=== PATIENT | female | born 1950 | race Caucasian/White ===

== ENCOUNTER 2016-07-13 09:14 | Inpatient (IN) | payer OTHER ==
[~2016-07-13] VITALS: Ht 307.3 cm; Wt 56.3 kg
[2016-07-13] MEDS ORDERED: SOD CHLORIDE 0.9% 1,000 ML IV STA (09:57)
[2016-07-13] MEDS ORDERED: ONDANSETRON 4 MG INJ IV STA (09:57)
[2016-07-13] MEDS ORDERED: LORAZEPAM 2 MG INJ IV ONE (10:00)
[2016-07-13 10:32] LABS: ADD SCAN DIFF NO
[2016-07-13 10:36] LABS: BASOPHILS % 0.2 % (0.0-2.0); HEMATOCRIT 47.7 % (37.0-47.0); HEMOGLOBIN 15.5 g/dl (12.0-16.0); LYMPHOCYTES # 0.7 10^3/ul (0.8-2.9); MEAN CORPUSCULAR HEMOGLOBIN 28.1 pg (29.0-33.0); MEAN CORPUSCULAR HGB CONC 32.5 g/dl (32.0-37.0); MEAN CORPUSCULAR VOLUME 86.6 fl (82.0-101.0); MONOCYTE # 0.4 10^3/ul (0.3-0.9); MONOCYTES % 3.5 % (0.0-11.0); NEUTROPHIL # 8.9 10^3/ul (1.6-7.5); PLATELET COUNT 344 10^3/UL (140-415); RED BLOOD COUNT 5.51 10^6/ul (4.20-5.40); RED CELL DISTRIBUTION WIDTH 13.2 % (11.5-14.5)
[2016-07-13 10:47] LABS: ALBUMIN 5.3 g/dl (3.3-4.9); POTASSIUM 3.3 mmol/L (3.5-5.1)
[2016-07-13 10:49] LABS: CREATININE 0.93 mg/dl (0.44-1.00)
[2016-07-13 10:50] LABS: ALBUMIN/GLOBULIN RATIO 1.1; BILIRUBIN,INDIRECT 0.5 mg/dl (0-1.1); BILIRUBIN,TOTAL 0.5 mg/dl (0.2-1.3); CALCIUM 10.5 mg/dl (8.4-10.2); TOTAL PROTEIN 10.1 g/dl (6.1-8.1)
[2016-07-13] MEDS ORDERED: ASPI-664 PO (13:08)
[2016-07-13] MEDS ORDERED: LOVA10TA63 PO (13:09)
[2016-07-13] MEDS ORDERED: LISI20TA11 PO (13:09)
[2016-07-13] MEDS ORDERED: [UNRECOGNIZED DRUG - CODE] PO (13:11)
[2016-07-13] MEDS ORDERED: OMEG-135 PO (13:13)
[2016-07-13] MEDS: SOD CHLORIDE 0.9% 1,000 ML IV SCH ×2 (14:10→14:29)
--- NOTE | 2016-07-13 14:14 | ERA ---
ER Documentation Chief Complaint Date/Time DATE: 07/13/16 TIME: 14:12 Chief Complaint ap, bucknes s/p pre colonoscopy HPI This is 66-year-old female who is preparing for colonoscopy today at 10 AM. She had 2-3 doses of milk of magnesia last night she said she had 2 or 3 episodes of loose stools with 2 episodes of vomiting ileus and nonbloody. She says this morning she is weak and feels fatigued. She has no abdominal pain no back pain no dizziness headache no chest pain or shortness of breath. The patient is an alcoholic and her last drink was a few days ago according to the family. No evidence of acute withdrawal at this point. ROS All systems reviewed and are negative except as per history of present illness. Medications Home Meds Reported Medications [place]-3 Fatty Acids/Fish Oil (Fish Oil 1,000 mg Capsule) 1 Each Capsule, 1 EACH PO, CAP 07/13/16 Multivitamin/Iron/Folic Acid (MULTI COMPLETE-IRON TABLET) 1 Each Tablet, 1 EACH PO DAILY, TAB 07/13/16 Lovastatin* (Lovastatin*) 10 Mg Tablet, 10 MG PO HS, TAB 07/13/16 Lisinopril* (Lisinopril*) 20 Mg Tablet, 20 MG PO DAILY, #30 TAB 07/13/16 Aspirin (Low Dose Aspirin) 81 Mg Tablet.dr, 81 MG PO DAILY, #30 TAB 07/13/16 PMhx/Soc Medical and Surgical Hx: pt denies Surgical Hx Hx Cardiac Disorders: Yes (HTN) Hx Alcohol Use: No Hx Substance Use: No Hx Tobacco Use: No Smoking Status: Former smoker FmHx Family History: No coronary disease Physical Exam Vitals Vital Signs Date Time Temp Pulse Resp B/P Pulse Ox O2 Delivery O2 Flow Rate FiO2 07/13/16 12:53 90 18 144/95 98 Room Air 07/13/16 09:16 98.1 108 24 145/90 90 Physical Exam Const: Well-developed, well-nourished Head: Atraumatic, normocephalic Eyes: Normal Conjunctiva, PERRLA, EOMI, normal sclera, no nystagmus ENT: Normal External Ears, Nose and Mouth, moist mucus membranes. Neck: Full range of motion. No meningismus, no lymphadenopathy. Resp: Clear to auscultation bilaterally, no wheezing, rhonchi, rales Cardio: Regular rate and rhythm, no murmurs, S1 S2 present Abd: Soft, non tender x 4, non distended. Normal bowel sounds, no guarding or rebound, no pulsitile abdominal masses or bruits Skin: No petechiae or rashes, no ecchymosis , no maculopapular rash Back: No midline or flank tenderness Ext: No cyanosis, or edema, FROM x 4, normal inspection, neurovascularly intact x 4 Neur: Awake and alert, STR 5/5 x 4, sensation intact x 4, no focal findings, cerebellum intact Psych: [Patient is very anxious and hyperventilating Result Diagram: 07/13/16 1012 07/13/16 1012 Results 24 hrs Laboratory Tests Test 07/13/16 10:12 White Blood Count 10.010^3/ul Red Blood Count 5.5110^6/ul Hemoglobin 15.5g/dl Hematocrit 47.7% Mean Corpuscular Volume 86.6fl Mean Corpuscular Hemoglobin 28.1pg Mean Corpuscular Hemoglobin Concent 32.5g/dl Red Cell Distribution Width 13.2% Platelet Count 29522^3/UL Mean Platelet Volume 11.0fl Neutrophils % 89.0% Lymphocytes % 7.0% Monocytes % 3.5% Eosinophils % 0.0% Basophils % 0.2% Nucleated Red Blood Cells % 0.0/100WBC Neutrophils # 8.910^3/ul Lymphocytes # 0.710^3/ul Monocytes # 0.410^3/ul Eosinophils # 0.010^3/ul Basophils # 0.010^3/ul Nucleated Red Blood Cells # 0.010^3/ul Sodium Level 159mmol/L Potassium Level 3.3mmol/L Chloride Level 105mmol/L Carbon Dioxide Level 34mmol/L Anion Gap 23 Blood Urea Nitrogen 20mg/dl Creatinine 0.93mg/dl Glucose Level 154mg/dl Calcium Level 10.5mg/dl Total Bilirubin 0.5mg/dl Direct Bilirubin 0.00mg/dl Indirect Bilirubin 0.5mg/dl Aspartate Amino Transf (AST/SGOT) 35IU/L Alanine Aminotransferase (ALT/SGPT) 19IU/L Alkaline Phosphatase 109IU/L Total Protein 10.1g/dl Albumin 5.3g/dl Globulin 4.80g/dl Albumin/Globulin Ratio 1.10 Current Medications Medications (Trade) Dose Ordered Sig/Rossy Route PRN Reason Start Time Stop Time Status Last Admin Dose Admin Sodium Chloride (NS) 1,000 ml @ 1,000 mls/hr Q1H STAT IV 07/13/16 09:57 07/13/16 10:56 DC 07/13/16 10:08 Ondansetron HCl (Zofran Inj) 4 mg ONCE STAT IV 07/13/16 09:57 07/13/16 09:59 DC 07/13/16 10:08 Lorazepam (Ativan) 0.5 mg ONCE ONCE IV 07/13/16 10:00 07/13/16 10:01 DC 07/13/16 10:08 Procedures/MDM Patient was found to have elevated sodium of 159. Rest of labs are relatively unremarkable. I will admit her for general rehydration to lower her sodium. I did speak with Dr. Bard apodaca for admission Departure Diagnosis: Primary Impression: Hypernatremia Condition: Stable PATY GONZALEZ DO Jul 13, 2016 14:14
[2016-07-13] MEDS ORDERED: ACETAMINOPHEN 325 MG TAB PO PRN (14:30)
[2016-07-13] MEDS ORDERED: ONDANSETRON 4 MG INJ IV PRN ×2 (14:30→18:00)
[2016-07-13 14:56] VITALS: TEMP 97.7
[2016-07-13] MEDS ORDERED: hydrALAzine 20 MG INJ IV PRN (18:00)
[2016-07-13] MEDS ORDERED: morphine 2 MG INJ IV PRN (18:00)
--- NOTE | 2016-07-13 18:05 | HP ---
DATE OF ADMISSION: 07/13/2016 CHIEF COMPLAINT: Generalized weakness, nausea and vomiting and left upper abdominal pain. HISTORY OF PRESENT ILLNESS: The patient is a 66-year-old female who was preparing for colonoscopy. Patient took a couple of doses of milk of magnesia last night and had 3 episodes of loose stool wit h episodes of nonbilious, nonbloody emesis. The patient complains of generalized weakness and compl aints of left upper abdominal pain. On evaluation in the emergency room, patient did not have any l eukocytosis, patient's sodium was found to be elevated to 169 and potassium was 3.3. The patient d enies any chest pain, denies shortness of breath, denies fever, chills, denies bilateral lower extre mity edema. The patient will be admitted for further evaluation and management. PAST MEDICAL HISTORY: Hypertension, hyperlipidemia. PAST SURGICAL HISTORY: Patient denies having any surgeries in the past. FAMILY HISTORY: Negative for any coronary artery disease. SOCIAL HISTORY: Patient lives at home with the family, patient denies any tobacco use, denies any i llicit drug use, denies any alcohol use. ALLERGIES: NO KNOWN ALLERGIES. MEDICATIONS ON ADMISSION: 1. Aspirin. 2. Lisinopril. 3. Lovastatin. REVIEW OF SYSTEMS: A 12-point review of systems is negative unless was mentioned in the HPI. PHYSICAL ASSESSMENT GENERAL: Well-developed, well-nourished female currently is awake, alert. VITAL SIGNS: Temperature 97.7, pulse is 86, blood pressure is 153/98, respiratory rate 20, oxygen s aturation is 100% on room air. HEENT: Head is atraumatic, normocephalic. Pupils equal, round, reactive to light and accommodation . Oral mucosa is dry. NECK: Supple, no cervical lymphadenopathy, no thyromegaly. CHEST: Lungs clear bilaterally. There is no rhonchi, wheezes, or rales noted. CARDIOVASCULAR: Normal S1, S2. No murmurs, gallops, clicks, rubs noted. ABDOMEN: Round, soft, nondistended. Patient has left upper quadrant tenderness on palpation. Ther e is no guarding, no rebound tenderness. EXTREMITIES: There is no edema, clubbing, cyanosis. Pulses equal bilaterally 2+. SKIN: There is no rash, petechiae noted. NEUROLOGIC: Patient is awake, alert and oriented x4. No focal deficits noted. Motor strength 5/5 in all extremities. LABORATORY DATA: On admission, CBC: White blood cells 10.0, hemoglobin 15.5, hematocrit 47.7, plat elets 344. Chemistry: Sodium is 169, potassium 3.3, chloride 105, carbon dioxide 34, anion gap 23, BUN is 20, creatinine 0.93, glucose 154, calcium 10.5, AST 35, ALT is 19, alkaline phosphatase 109. ASSESSMENT AND PLAN: 1. Hypernatremia. 2. Hypokalemia. 3. Abdominal pain. 4. Hypertension. We will continue hydralazine p.r.n. for systolic blood pressure above 170. 5. Hyperlipidemia. We will ask Dr. Horta to see patient in nephrology consultation. Patient will be admitted for hydration and monitoring of electrolytes. Also, continue Zofran p.r.n. for nausea a nd morphine p.r.n. for pain. Further recommendations: Will start Lovenox for deep venous thrombosis prophylaxis and Protonix for peptic ulcer disease prophylaxis. Further recommendations based on clinical course. The patient a lso was preparing for colonoscopy; however, the patient does not know her gastroenterology doctor. Ulises cantu with primary doctor, ____. The patient continues to have abdominal pain and nausea and vomi ting. We will obtain gastroenterology consult. Further recommendations based on clinical course. Plan of care is discussed with Dr. Daniels. Dictated By: KRAIG BAÑUELOS SHEEP BONER for ZACHARY DANIELS MD, SR/NTS Conf#: [id number] DID#: [id number]
[2016-07-13 19:05] VITALS: BP 152/99; PULSE 85; RESP 13
[2016-07-13] MEDS: D5W + KCL 20 MEQ 1,000 ML IV SCH (22:08)
[2016-07-13] MEDS: ENOXAPARIN 30 MG/0.3 ML SYG SC SCH (22:08)
[2016-07-13] MEDS: PANTOPRAZOLE 40 MG INJ IV SCH (22:08)
[2016-07-13 22:57] VITALS: BP 164/84; PULSE 70; RESP 19
[2016-07-13 23:30] VITALS: PULSE 61; Ht 307.3 cm; Wt 56.3 kg
[2016-07-14] VITALS (12 sets, daily range): BP systolic 126–176; BP diastolic 75–102; PULSE 63–81; RESP 18–71
--- NOTE | 2016-07-14 00:45 | CONS ---
DATE OF ADMISSION: 07/13/2016 DATE OF CONSULTATION: 07/13/2016 REASON FOR CONSULTATION: Acute hypernatremia, hypokalemia. HISTORY OF PRESENT ILLNESS: This is a 66-year-old female who has a past medical history of hyperten min, hyperlipidemia who was preparing for colonoscopy. She took a couple of doses of Milk of Magne roberta last night and had 3 episodes of loose stools with episodes of nonbilious, nonbloody emesis. Sh e complains of generalized weakness and left upper abdominal pain. The patient came to the emergenc y room where she was noted to have hypernatremia with a sodium up to 169 and potassium was also 3.3. She denies any chest pain, shortness of breath, fever, chills, headache, dizziness, blurry vision, constipation, diarrhea, dysuria, increased urinary frequency. The patient already received 2 liter s of IV normal saline in the emergency room and she is getting admitted for further IV fluid hydrati on and workup of hyponatremia and hyperkalemia. REVIEW OF SYSTEMS: Positive for generalized weakness, diarrhea, vomiting. Other review of systems has been obtained and is negative except what is mentioned in the history of present illness. PAST MEDICAL HISTORY: Hypertension, hyperlipidemia. PAST SURGICAL HISTORY: Not available. FAMILY HISTORY: Negative for any coronary artery disease. SOCIAL HISTORY: The patient lives at home with her family. She denies any tobacco use. Denies any illicit drug use. Denies any alcohol use. ALLERGIES: NO KNOWN DRUG ALLERGIES. HOME MEDICATIONS: Include: 1. Aspirin. 2. Lisinopril. 3. Lovastatin. REVIEW OF SYSTEMS: Negative. PHYSICAL EXAMINATION: VITAL SIGNS: Temperature 97.7, heart rate 85, respirations 13, blood pressure 152/99, saturation is 100% on room air. GENERAL: Awake, alert, in no distress. HEENT: Normal. Oropharynx clear. NECK: Supple, no JVD, no lymphadenopathy. LUNGS: Clear to auscultation. No crackles, no wheezes. HEART: S1, S2, with regular rhythm, no murmur. ABDOMEN: Soft, nontender, nondistended. Bowel sounds are present. EXTREMITIES: No clubbing, cyanosis, or edema. NEUROLOGICAL: Nonfocal, intact. PSYCHIATRIC: Appropriate affect and mood. LABORATORY DATA/DIAGNOSTIC IMAGING: Sodium 159, potassium 3.3, chloride 105, bicarbonate 34, BUN 20 , creatinine 0.9, glucose 154, calcium 10.5, albumin 5.3, total protein 10.1. WBC , hemoglobin 15.5, platelet count 344. IMPRESSION: This is a 66-year-old female who has been getting admitted for diarrhea, nausea, vomiti ng and renal has been consulted for: 1. Acute hypernatremia. 2. Severe hypokalemia. 3. Prerenal azotemia. 4. Abdominal pain. 5. History of hypertension. 6. History of hyperlipidemia. PLAN: The patient is currently seen in the emergency room. She will be getting admitted to the tel emetry floor. Thank you, Dr. Little, for this consultation. I will start the patient on IV fluids with D5W with 20 mEq KCl to run at 80 mL hour. Continue the current medications and we will continue to monitor the patient's electrolytes. The pa garrett will be followed up along with the primary care physician, Dr. Little. Once again, thank you, Dr. Little, for this consultation. I will continue to follow this patient. Total time spent in this patient's evaluation in the emergency room, making assessment and plan, com municating and updating the patient's family at bedside, communicating with the nursing staff took m ore than 90 minutes and more than 50% of time spent in education. Dictated By: BERNICE DISLA MD, KP/KENYON Conf#: [id number] DID#: [id number]
[2016-07-14] MEDS ORDERED: ACETAMINOPHEN 325 MG TAB PO PRN (01:00)
[2016-07-14] MEDS: PANTOPRAZOLE 40 MG INJ IV SCH ×3 (05:51→18:50)
[2016-07-14] MEDS: D5W + KCL 20 MEQ 1,000 ML IV SCH ×2 (05:54→09:14)
[2016-07-14] MEDS ORDERED: ENOXAPARIN 30 MG/0.3 ML SYG SC SCH (09:00)
[2016-07-14] MEDS: ENOXAPARIN 30 MG/0.3 ML SYG SC SCH (09:19)
[2016-07-14 11:28] LABS: ADD SCAN DIFF NO
[2016-07-14 11:34] LABS: BASOPHILS % 0.3 % (0.0-2.0); EOSINOPHILS # 0.1 10^3/ul (0.0-0.5); EOSINOPHILS % 0.5 % (0.0-7.0); HEMATOCRIT 42.4 % (37.0-47.0); HEMOGLOBIN 13.2 g/dl (12.0-16.0); LYMPHOCYTES # 2.1 10^3/ul (0.8-2.9); LYMPHOCYTES % 22.1 % (15.0-51.0); MEAN CORPUSCULAR HGB CONC 31.1 g/dl (32.0-37.0); MEAN PLATELET VOLUME 10.4 fl (7.4-10.4); MONOCYTE # 0.9 10^3/ul (0.3-0.9); MONOCYTES % 9.2 % (0.0-11.0); NEUTROPHIL # 6.5 10^3/ul (1.6-7.5); NEUTROPHILS % 67.5 % (39.0-77.0); PLATELET COUNT 273 10^3/UL (140-415); RED BLOOD COUNT 4.71 10^6/ul (4.20-5.40); RED CELL DISTRIBUTION WIDTH 13.6 % (11.5-14.5); WHITE BLOOD COUNT 9.7 10^3/ul (4.8-10.8)
[2016-07-14 12:55] LABS: POTASSIUM 3.8 mmol/L (3.5-5.1)
[2016-07-14 12:57] LABS: CREATININE 0.86 mg/dl (0.44-1.00)
[2016-07-14 12:58] LABS: CALCIUM 9.2 mg/dl (8.4-10.2)
--- NOTE | 2016-07-14 19:01 | CONS ---
Date/Time of Note Date/Time of Note DATE: 07/14/16 TIME: 19:00 Assessment/Plan Assessment/Plan Additional Assessment/Plan 1. Acute hypernatremia. 2. Severe hypokalemia. 3. Prerenal azotemia. 4. Abdominal pain. 5. History of hypertension. 6. History of hyperlipidemia. PLAN: na improving, Continue current IVF will follow up Consultation Date/Type/Reason Admit Date/Time Jul 13, 2016 at 14:11 Initial Consult Date Type of Consultation: NEPHROLOGY 24 HR Interval Summary Free Text/Dictation na improved to 150, pt less symptomatic Exam/Review of Systems Vital Signs Vitals Vital Signs Date Time Temp Pulse Resp B/P Pulse Ox O2 Delivery O2 Flow Rate FiO2 07/14/16 16:17 72 07/14/16 16:07 98.6 18 126/75 99 07/14/16 12:02 Room Air Intake and Output 07/13/16 07/13/16 07/14/16 15:00 23:00 07:00 Intake Total 800 ml Balance 800 ml Exam GENERAL: Awake, alert, in no distress. HEENT: Normal. Oropharynx clear. NECK: Supple, no JVD, no lymphadenopathy. LUNGS: Clear to auscultation. No crackles, no wheezes. HEART: S1, S2, with regular rhythm, no murmur. ABDOMEN: Soft, nontender, nondistended. Bowel sounds are present. EXTREMITIES: No clubbing, cyanosis, or edema. NEUROLOGICAL: Nonfocal, intact. PSYCHIATRIC: Appropriate affect and mood. Results Result Diagram: 07/14/16 1113 07/14/16 1113 Results 24 hrs Laboratory Tests Test 07/14/16 11:13 White Blood Count 9.7 Red Blood Count 4.71 Hemoglobin 13.2 Hematocrit 42.4 Mean Corpuscular Volume 90.0 Mean Corpuscular Hemoglobin 28.0 L Mean Corpuscular Hemoglobin Concent 31.1 L Red Cell Distribution Width 13.6 Platelet Count 273 # Mean Platelet Volume 10.4 Neutrophils % 67.5 Lymphocytes % 22.1 Monocytes % 9.2 Eosinophils % 0.5 Basophils % 0.3 Nucleated Red Blood Cells % 0.0 Neutrophils # 6.5 Lymphocytes # 2.1 Monocytes # 0.9 Eosinophils # 0.1 Basophils # 0.0 Nucleated Red Blood Cells # 0.0 Sodium Level 150 H Potassium Level 3.8 Chloride Level 106 Carbon Dioxide Level 30 Anion Gap 18 H Blood Urea Nitrogen 27 H Creatinine 0.86 Glucose Level 83 # Calcium Level 9.2 Medications Medications Current Medications Hydralazine HCl (Apresoline) 10 mg Q6H PRN IV SBP>170; Start 07/13/16 at 18:00 Pantoprazole (Protonix Iv) 40 mg BID@06,18 IV Last administered on 07/14/16 18 :50; Admin Dose 40 MG; Start 07/13/16 at 18:00 Enoxaparin Sodium 30 mg 30 mg DAILY SC Last administered on 07/14/16 09:19; Admin Dose 30 MG; Start 07/13/16 at 18:00 Potassium Chloride/Dextrose (D5W + KCl 20 Meq) 1,000 ml @ 80 mls/hr [id number] IV Last administered on 07/14/16 09:14; Admin Dose 80 MLS/HR; Start 07/13/16 at 18:00 Ondansetron HCl (Zofran Inj) 4 mg Q6H PRN IV NAUSEA AND/OR VOMITING; Start at 18:00 Morphine Sulfate (morphine) 2 mg Q4H PRN IV PAIN LEVEL 7-10; Start 07/13/16 at 18:00 Acetaminophen (Tylenol Tab) 650 mg Q6H PRN PO PAIN AND OR ELEVATED TEMP; Start 07/14/16 at 01:00 BERNICE DISLA MD Jul 14, 2016 19:01
--- NOTE | 2016-07-14 20:53 | PN ---
Date/Time of Note Date/Time of Note DATE: 07/14/16 TIME: 20:47 Assessment/Plan VTE Prophylaxis VTE Prophylaxis Intervention: other Lines/Catheters IV Catheter Type (from Nrsg): Peripheral IV Assessment/Plan Assessment/Plan 1. Hypernatremia- improving 2. Hypokalemia- resolved 3. Abdominal pain. 4. Hypertension. We will continue hydralazine p.r.n. for systolic blood pressure above 170. 5. Hyperlipidemia. 6. Hypernatremia- - per Dr. Horta in nephrology consultation. Also, continue Zofran p.r.n. for nausea and morphine p.r.n. for pain. DW Dr Little/ staff. Subjective 24 Hr Interval Summary Eyes: no complaints ENT: no complaints Respiratory: no complaints Cardiovascular: no complaints Gastrointestinal: pain Genitourinary: no complaints Musculoskeletal: no complaints Skin: no complaints Neurologic: no complaints Exam/Review of Systems Vital Signs Vitals Vital Signs Date Time Temp Pulse Resp B/P Pulse Ox O2 Delivery O2 Flow Rate FiO2 07/14/16 20:39 75 07/14/16 19:50 98.3 20 131/78 99 07/14/16 12:02 Room Air Intake and Output 07/13/16 07/13/16 07/14/16 15:00 23:00 07:00 Intake Total 800 ml Balance 800 ml Exam Constitutional: alert, oriented, well developed Psych: nl mood/affect Eyes: nl conjunctiva Neck: non-tender Respiratory: clear to auscultation Cardiovascular: regular rate and rhythm Gastrointestinal: non-tender, soft Musculoskeletal: nl extremities to inspection Results Result Diagram: 07/14/16 1113 07/14/16 1113 Results 24 hrs Laboratory Tests Test 07/14/16 11:13 White Blood Count 9.7 Red Blood Count 4.71 Hemoglobin 13.2 Hematocrit 42.4 Mean Corpuscular Volume 90.0 Mean Corpuscular Hemoglobin 28.0 L Mean Corpuscular Hemoglobin Concent 31.1 L Red Cell Distribution Width 13.6 Platelet Count 273 # Mean Platelet Volume 10.4 Neutrophils % 67.5 Lymphocytes % 22.1 Monocytes % 9.2 Eosinophils % 0.5 Basophils % 0.3 Nucleated Red Blood Cells % 0.0 Neutrophils # 6.5 Lymphocytes # 2.1 Monocytes # 0.9 Eosinophils # 0.1 Basophils # 0.0 Nucleated Red Blood Cells # 0.0 Sodium Level 150 H Potassium Level 3.8 Chloride Level 106 Carbon Dioxide Level 30 Anion Gap 18 H Blood Urea Nitrogen 27 H Creatinine 0.86 Glucose Level 83 # Calcium Level 9.2 Medications Medications Current Medications Hydralazine HCl (Apresoline) 10 mg Q6H PRN IV SBP>170; Start 07/13/16 at 18:00 Pantoprazole (Protonix Iv) 40 mg BID@06,18 IV Last administered on 07/14/16 18 :40; Admin Dose 40 MG; Start 07/13/16 at 18:00 Enoxaparin Sodium 30 mg 30 mg DAILY SC Last administered on 07/14/16 09:19; Admin Dose 30 MG; Start 07/13/16 at 18:00 Potassium Chloride/Dextrose (D5W + KCl 20 Meq) 1,000 ml @ 80 mls/hr [id number] IV Last administered on 07/14/16 09:14; Admin Dose 80 MLS/HR; Start 07/13/16 at 18:00 Ondansetron HCl (Zofran Inj) 4 mg Q6H PRN IV NAUSEA AND/OR VOMITING; Start at 18:00 Morphine Sulfate (morphine) 2 mg Q4H PRN IV PAIN LEVEL 7-10; Start 07/13/16 at 18:00 Acetaminophen (Tylenol Tab) 650 mg Q6H PRN PO PAIN AND OR ELEVATED TEMP; Start 07/14/16 at 01:00 PATRICA JENKINS Jul 14, 2016 20:53
[2016-07-15] VITALS (13 sets, daily range): BP systolic 116–146; BP diastolic 54–83; PULSE 64–83; RESP 17–20
[2016-07-15] MEDS: D5W + KCL 20 MEQ 1,000 ML IV SCH ×2 (01:43→17:10)
[2016-07-15] MEDS: PANTOPRAZOLE 40 MG INJ IV SCH ×2 (05:23→17:13)
[2016-07-15 07:55] LABS: ADD SCAN DIFF NO
[2016-07-15 07:57] LABS: BASOPHIL # 0.1 10^3/ul (0.0-0.1); BASOPHILS % 0.8 % (0.0-2.0); EOSINOPHILS # 0.3 10^3/ul (0.0-0.5); EOSINOPHILS % 4.5 % (0.0-7.0); HEMATOCRIT 38.4 % (37.0-47.0); HEMOGLOBIN 12.4 g/dl (12.0-16.0); LYMPHOCYTES # 1.9 10^3/ul (0.8-2.9); MEAN CORPUSCULAR HEMOGLOBIN 28.4 pg (29.0-33.0); MEAN CORPUSCULAR HGB CONC 32.3 g/dl (32.0-37.0); MEAN CORPUSCULAR VOLUME 88.1 fl (82.0-101.0); MEAN PLATELET VOLUME 10.6 fl (7.4-10.4); MONOCYTE # 0.5 10^3/ul (0.3-0.9); MONOCYTES % 8.1 % (0.0-11.0); NEUTROPHIL # 3.7 10^3/ul (1.6-7.5); NEUTROPHILS % 57.3 % (39.0-77.0); PLATELET COUNT 242 10^3/UL (140-415); RED BLOOD COUNT 4.36 10^6/ul (4.20-5.40); RED CELL DISTRIBUTION WIDTH 13.2 % (11.5-14.5); WHITE BLOOD COUNT 6.4 10^3/ul (4.8-10.8)
[2016-07-15 08:09] LABS: INR 1.13; PROTIME 14.5 Sec (12.2-14.2); PT RATIO 1.1
[2016-07-15 08:10] LABS: PARTIAL THROMBOPLASTIN TIME 28.3 Sec (25.0-35.0)
[2016-07-15 08:13] LABS: POTASSIUM 4.1 mmol/L (3.5-5.1)
[2016-07-15 08:15] LABS: CREATININE 0.84 mg/dl (0.44-1.00)
[2016-07-15 08:16] LABS: CALCIUM 8.6 mg/dl (8.4-10.2)
[2016-07-15] MEDS: ENOXAPARIN 30 MG/0.3 ML SYG SC SCH (09:01)
--- NOTE | 2016-07-15 10:30 | CONS ---
Date/Time of Note Date/Time of Note DATE: 07/15/16 TIME: 10:29 Assessment/Plan Assessment/Plan Additional Assessment/Plan 1. Acute hypernatremia. 2. Severe hypokalemia. 3. Prerenal azotemia. 4. Abdominal pain. 5. History of hypertension. 6. History of hyperlipidemia. PLAN: na improving, Continue current IVF- decrease rate to 60cc/hr will follow up Consultation Date/Type/Reason Admit Date/Time Jul 13, 2016 at 14:11 Type of Consultation: NEPHROLOGY 24 HR Interval Summary Free Text/Dictation Na better, pt stable, no chest pain, no SOB Exam/Review of Systems Vital Signs Vitals Vital Signs Date Time Temp Pulse Resp B/P Pulse Ox O2 Delivery O2 Flow Rate FiO2 07/15/16 08:22 64 07/15/16 07:57 98.4 19 133/83 97 07/14/16 12:02 Room Air Intake and Output 07/14/16 07/14/16 07/15/16 15:00 23:00 07:00 Intake Total 1600 ml 1080 ml Output Total 550 ml Balance 1050 ml 1080 ml Exam GENERAL: Awake, alert, in no distress. HEENT: Normal. Oropharynx clear. NECK: Supple, no JVD, no lymphadenopathy. LUNGS: Clear to auscultation. No crackles, no wheezes. HEART: S1, S2, with regular rhythm, no murmur. ABDOMEN: Soft, nontender, nondistended. Bowel sounds are present. EXTREMITIES: No clubbing, cyanosis, or edema. NEUROLOGICAL: Nonfocal, intact. PSYCHIATRIC: Appropriate affect and mood. Results Result Diagram: 07/15/16 0657 07/15/16 0657 Results 24 hrs Laboratory Tests Test 07/14/16 11:13 07/15/16 06:57 White Blood Count 9.7 6.4 # Red Blood Count 4.71 4.36 Hemoglobin 13.2 12.4 Hematocrit 42.4 38.4 Mean Corpuscular Volume 90.0 88.1 Mean Corpuscular Hemoglobin 28.0 L 28.4 L Mean Corpuscular Hemoglobin Concent 31.1 L 32.3 Red Cell Distribution Width 13.6 13.2 Platelet Count 273 # 242 Mean Platelet Volume 10.4 10.6 H Neutrophils % 67.5 57.3 Lymphocytes % 22.1 29.0 Monocytes % 9.2 8.1 Eosinophils % 0.5 4.5 Basophils % 0.3 0.8 Nucleated Red Blood Cells % 0.0 0.0 Neutrophils # 6.5 3.7 Lymphocytes # 2.1 1.9 Monocytes # 0.9 0.5 Eosinophils # 0.1 0.3 Basophils # 0.0 0.1 Nucleated Red Blood Cells # 0.0 0.0 Sodium Level 150 H 143 Potassium Level 3.8 4.1 Chloride Level 106 103 Carbon Dioxide Level 30 29 Anion Gap 18 H 15 Blood Urea Nitrogen 27 H 20 Creatinine 0.86 0.84 Glucose Level 83 # 108 Calcium Level 9.2 8.6 Prothrombin Time 14.5 H Prothrombin Time Ratio 1.1 INR International Normalized Ratio 1.13 Activated Partial Thromboplast Time 28.3 Medications Medications Current Medications Hydralazine HCl (Apresoline) 10 mg Q6H PRN IV SBP>170; Start 07/13/16 at 18:00 Pantoprazole (Protonix Iv) 40 mg BID@06,18 IV Last administered on 07/15/16 05 :23; Admin Dose 40 MG; Start 07/13/16 at 18:00 Enoxaparin Sodium 30 mg 30 mg DAILY SC Last administered on 07/15/16 09:01; Admin Dose 30 MG; Start 07/13/16 at 18:00 Potassium Chloride/Dextrose (D5W + KCl 20 Meq) 1,000 ml @ 80 mls/hr [id number] IV Last administered on 07/15/16 01:43; Admin Dose 80 MLS/HR; Start 07/13/16 at 18:00 Ondansetron HCl (Zofran Inj) 4 mg Q6H PRN IV NAUSEA AND/OR VOMITING; Start at 18:00 Morphine Sulfate (morphine) 2 mg Q4H PRN IV PAIN LEVEL 7-10; Start 07/13/16 at 18:00 Acetaminophen (Tylenol Tab) 650 mg Q6H PRN PO PAIN AND OR ELEVATED TEMP; Start 07/14/16 at 01:00 BERNICE DISLA MD Jul 15, 2016 10:30
[2016-07-15] MEDS ORDERED: D5W + KCL 20 MEQ 1,000 ML IV SCH (16:00)
--- NOTE | 2016-07-15 19:08 | PN ---
Date/Time of Note Date/Time of Note DATE: 07/15/16 TIME: 19:04 Assessment/Plan VTE Prophylaxis VTE Prophylaxis Intervention: SCD's Lines/Catheters IV Catheter Type (from Nrs): Peripheral IV Assessment/Plan Chief Complaint/Hosp Course ASSESSMENT AND PLAN: 1. Hypernatremia, resolving. 2. Hypokalemia, resolved. 3. Abdominal pain. 4. Hypertension. We will continue hydralazine p.r.n. for systolic blood pressure above 170. 5. Hyperlipidemia. Further recommendations based on clinical course. Plan of care is discussed with Dr. iLttle. Problems: Subjective 24 Hr Interval Summary Free Text/Dictation Patient was able to tolerate current diet well, denies nausea vomiting Exam/Review of Systems Vital Signs Vitals Vital Signs Date Time Temp Pulse Resp B/P Pulse Ox O2 Delivery O2 Flow Rate FiO2 07/15/16 16:28 81 07/15/16 16:15 98.3 17 116/69 97 07/14/16 12:02 Room Air Intake and Output 07/14/16 07/14/16 07/15/16 15:00 23:00 07:00 Intake Total 1600 ml 1080 ml Output Total 550 ml Balance 1050 ml 1080 ml Exam PHYSICAL ASSESSMENT GENERAL: Well-developed, well-nourished female currently is awake, alert. HEENT: Head is atraumatic, normocephalic. Pupils equal, round, reactive to light and accommodation. Oral mucosa is dry. NECK: Supple, no cervical lymphadenopathy, no thyromegaly. CHEST: Lungs clear bilaterally. There is no rhonchi, wheezes, or rales noted. CARDIOVASCULAR: Normal S1, S2. No murmurs, gallops, clicks, rubs noted. ABDOMEN: Round, soft, nondistended. Patient has left upper quadrant tenderness on palpation. There is no guarding, no rebound tenderness. EXTREMITIES: There is no edema, clubbing, cyanosis. Pulses equal bilaterally 2 +. SKIN: There is no rash, petechiae noted. NEUROLOGIC: Patient is awake, alert and oriented x4. Results Result Diagram: 07/15/16 0657 07/15/16 0657 Results 24 hrs Laboratory Tests Test 07/15/16 06:57 White Blood Count 6.4 # Red Blood Count 4.36 Hemoglobin 12.4 Hematocrit 38.4 Mean Corpuscular Volume 88.1 Mean Corpuscular Hemoglobin 28.4 L Mean Corpuscular Hemoglobin Concent 32.3 Red Cell Distribution Width 13.2 Platelet Count 242 Mean Platelet Volume 10.6 H Neutrophils % 57.3 Lymphocytes % 29.0 Monocytes % 8.1 Eosinophils % 4.5 Basophils % 0.8 Nucleated Red Blood Cells % 0.0 Neutrophils # 3.7 Lymphocytes # 1.9 Monocytes # 0.5 Eosinophils # 0.3 Basophils # 0.1 Nucleated Red Blood Cells # 0.0 Prothrombin Time 14.5 H Prothrombin Time Ratio 1.1 INR International Normalized Ratio 1.13 Activated Partial Thromboplast Time 28.3 Sodium Level 143 Potassium Level 4.1 Chloride Level 103 Carbon Dioxide Level 29 Anion Gap 15 Blood Urea Nitrogen 20 Creatinine 0.84 Glucose Level 108 Calcium Level 8.6 Medications Medications Current Medications Hydralazine HCl (Apresoline) 10 mg Q6H PRN IV SBP>170; Start 07/13/16 at 18:00 Pantoprazole (Protonix Iv) 40 mg BID@06,18 IV Last administered on 07/15/16 17 :13; Admin Dose 40 MG; Start 07/13/16 at 18:00 Enoxaparin Sodium (Lovenox) 30 mg DAILY SC Last administered on 07/15/16 09:01 ; Admin Dose 30 MG; Start 07/13/16 at 18:00 Ondansetron HCl (Zofran Inj) 4 mg Q6H PRN IV NAUSEA AND/OR VOMITING; Start at 18:00 Morphine Sulfate (morphine) 2 mg Q4H PRN IV PAIN LEVEL 7-10; Start 07/13/16 at 18:00 Acetaminophen 650 mg 650 mg Q6H PRN PO PAIN AND OR ELEVATED TEMP; Start at 01:00 Potassium Chloride/Dextrose (D5W + KCl 20 Meq) 1,000 ml @ 60 mls/hr [id number] IV Last administered on 07/15/16 17:10; Admin Dose 60 MLS/HR; Start 07/15/16 at 18:00; Stop 07/17/16 at 03:19 KRAIG BAÑUELOS Jul 15, 2016 19:08
[2016-07-16] VITALS (11 sets, daily range): BP systolic 120–149; BP diastolic 69–81; PULSE 65–73; RESP 20
[2016-07-16] MEDS: PANTOPRAZOLE 40 MG INJ IV SCH ×2 (05:16→18:10)
[2016-07-16 08:33] LABS: ADD SCAN DIFF NO
[2016-07-16 08:48] LABS: BASOPHILS % 0.7 % (0.0-2.0); EOSINOPHILS # 0.3 10^3/ul (0.0-0.5); EOSINOPHILS % 6.1 % (0.0-7.0); HEMATOCRIT 37.3 % (37.0-47.0); HEMOGLOBIN 12.3 g/dl (12.0-16.0); LYMPHOCYTES # 1.7 10^3/ul (0.8-2.9); LYMPHOCYTES % 31.3 % (15.0-51.0); MEAN CORPUSCULAR HEMOGLOBIN 28.9 pg (29.0-33.0); MEAN CORPUSCULAR VOLUME 87.8 fl (82.0-101.0); MEAN PLATELET VOLUME 10.9 fl (7.4-10.4); MONOCYTE # 0.5 10^3/ul (0.3-0.9); MONOCYTES % 9.4 % (0.0-11.0); NEUTROPHIL # 2.8 10^3/ul (1.6-7.5); NEUTROPHILS % 52.3 % (39.0-77.0); PLATELET COUNT 232 10^3/UL (140-415); RED BLOOD COUNT 4.25 10^6/ul (4.20-5.40); RED CELL DISTRIBUTION WIDTH 13.1 % (11.5-14.5); WHITE BLOOD COUNT 5.4 10^3/ul (4.8-10.8)
[2016-07-16 09:04] LABS: POTASSIUM 4.1 mmol/L (3.5-5.1)
[2016-07-16 09:06] LABS: CREATININE 0.74 mg/dl (0.44-1.00)
[2016-07-16 09:07] LABS: CALCIUM 8.4 mg/dl (8.4-10.2)
[2016-07-16] MEDS: ENOXAPARIN 30 MG/0.3 ML SYG SC SCH (09:19)
--- NOTE | 2016-07-16 11:26 | CONS ---
Date/Time of Note Date/Time of Note DATE: 07/16/16 TIME: 11:23 Assessment/Plan Assessment/Plan Additional Assessment/Plan 1. Acute hypernatremia. 2. Severe hypokalemia. 3. Prerenal azotemia. 4. Abdominal pain. 5. History of hypertension. 6. History of hyperlipidemia. PLAN: Continue current IVF- decrease rate to 40cc/hr, K stable, Na better will follow up Consultation Date/Type/Reason Admit Date/Time Jul 13, 2016 at 14:11 Type of Consultation: NEPHROLOGY 24 HR Interval Summary Free Text/Dictation Na improved to normal, BP stable, Exam/Review of Systems Vital Signs Vitals Vital Signs Date Time Temp Pulse Resp B/P Pulse Ox O2 Delivery O2 Flow Rate FiO2 07/16/16 08:14 97.8 68 20 120/72 97 07/14/16 12:02 Room Air Intake and Output 07/15/16 07/15/16 07/16/16 15:00 23:00 07:00 Intake Total 650 ml Output Total 800 ml Balance -150 ml Exam GENERAL: Awake, alert, in no distress. HEENT: Normal. Oropharynx clear. NECK: Supple, no JVD, no lymphadenopathy. LUNGS: Clear to auscultation. No crackles, no wheezes. HEART: S1, S2, with regular rhythm, no murmur. ABDOMEN: Soft, nontender, nondistended. Bowel sounds are present. EXTREMITIES: No clubbing, cyanosis, or edema. NEUROLOGICAL: Nonfocal, intact. PSYCHIATRIC: Appropriate affect and mood. Results Result Diagram: 07/16/16 0730 07/16/16 0730 Results 24 hrs Laboratory Tests Test 07/16/16 07:30 White Blood Count 5.4 Red Blood Count 4.25 Hemoglobin 12.3 Hematocrit 37.3 Mean Corpuscular Volume 87.8 Mean Corpuscular Hemoglobin 28.9 L Mean Corpuscular Hemoglobin Concent 33.0 Red Cell Distribution Width 13.1 Platelet Count 232 Mean Platelet Volume 10.9 H Neutrophils % 52.3 Lymphocytes % 31.3 Monocytes % 9.4 Eosinophils % 6.1 Basophils % 0.7 Nucleated Red Blood Cells % 0.0 Neutrophils # 2.8 Lymphocytes # 1.7 Monocytes # 0.5 Eosinophils # 0.3 Basophils # 0.0 Nucleated Red Blood Cells # 0.0 Sodium Level 137 Potassium Level 4.1 Chloride Level 102 Carbon Dioxide Level 31 Anion Gap 8 Blood Urea Nitrogen 17 Creatinine 0.74 Glucose Level 93 Calcium Level 8.4 Medications Medications Current Medications Hydralazine HCl (Apresoline) 10 mg Q6H PRN IV SBP>170; Start 07/13/16 at 18:00 Pantoprazole (Protonix Iv) 40 mg BID@06,18 IV Last administered on 07/16/16 05 :16; Admin Dose 40 MG; Start 07/13/16 at 18:00 Enoxaparin Sodium (Lovenox) 30 mg DAILY SC Last administered on 07/16/16 09:19 ; Admin Dose 30 MG; Start 07/13/16 at 18:00 Ondansetron HCl (Zofran Inj) 4 mg Q6H PRN IV NAUSEA AND/OR VOMITING; Start at 18:00 Morphine Sulfate (morphine) 2 mg Q4H PRN IV PAIN LEVEL 7-10; Start 07/13/16 at 18:00 Acetaminophen 650 mg 650 mg Q6H PRN PO PAIN AND OR ELEVATED TEMP; Start at 01:00 Potassium Chloride/Dextrose (D5W + KCl 20 Meq) 1,000 ml @ 60 mls/hr [id number] IV Last administered on 07/15/16 17:10; Admin Dose 60 MLS/HR; Start 07/15/16 at 18:00; Stop 07/17/16 at 03:19 BERNICE DISLA MD Jul 16, 2016 11:26
[2016-07-16] MEDS: D5W + KCL 20 MEQ 1,000 ML IV SCH ×2 (12:02→12:20)
--- NOTE | 2016-07-16 18:12 | PN ---
Date/Time of Note Date/Time of Note DATE: 07/16/16 TIME: 18:10 Assessment/Plan Lines/Catheters IV Catheter Type (from Nrs): Peripheral IV Assessment/Plan Assessment/Plan 1. Hypernatremia, resolving. 2. Hypokalemia, resolved. 3. Abdominal pain. 4. Hypertension. - hydralazine p.r.n. for systolic blood pressure above 170. 5. Hyperlipidemia. Further recommendations based on clinical course. Plan of care is discussed with Dr. Little. Subjective 24 Hr Interval Summary Constitutional: no complaints Eyes: no complaints ENT: no complaints Respiratory: no complaints Cardiovascular: no complaints Gastrointestinal: no complaints Genitourinary: no complaints Musculoskeletal: no complaints Skin: no complaints Exam/Review of Systems Vital Signs Vitals Vital Signs Date Time Temp Pulse Resp B/P Pulse Ox O2 Delivery O2 Flow Rate FiO2 07/16/16 16:29 97.7 73 20 127/69 97 07/14/16 12:02 Room Air Intake and Output 07/15/16 07/15/16 07/16/16 14:59 22:59 06:59 Intake Total 1510 ml Output Total 800 ml Balance 710 ml Exam Constitutional: alert, oriented, well developed Psych: nl mood/affect Eyes: EOMI ENMT: nl external ears & nose Neck: non-tender Respiratory: clear to auscultation Cardiovascular: nl pulses Gastrointestinal: non-tender, soft Musculoskeletal: nl extremities to inspection Extremities: normal pulses Neurological: nl speech Lymph: nontender Results Result Diagram: 07/16/16 0730 07/16/16 0730 Results 24 hrs Laboratory Tests Test 07/16/16 07:30 White Blood Count 5.4 Red Blood Count 4.25 Hemoglobin 12.3 Hematocrit 37.3 Mean Corpuscular Volume 87.8 Mean Corpuscular Hemoglobin 28.9 L Mean Corpuscular Hemoglobin Concent 33.0 Red Cell Distribution Width 13.1 Platelet Count 232 Mean Platelet Volume 10.9 H Neutrophils % 52.3 Lymphocytes % 31.3 Monocytes % 9.4 Eosinophils % 6.1 Basophils % 0.7 Nucleated Red Blood Cells % 0.0 Neutrophils # 2.8 Lymphocytes # 1.7 Monocytes # 0.5 Eosinophils # 0.3 Basophils # 0.0 Nucleated Red Blood Cells # 0.0 Sodium Level 137 Potassium Level 4.1 Chloride Level 102 Carbon Dioxide Level 31 Anion Gap 8 Blood Urea Nitrogen 17 Creatinine 0.74 Glucose Level 93 Calcium Level 8.4 Medications Medications Current Medications Hydralazine HCl (Apresoline) 10 mg Q6H PRN IV SBP>170; Start 07/13/16 at 18:00 Pantoprazole (Protonix Iv) 40 mg BID@06,18 IV Last administered on 07/16/16 05 :16; Admin Dose 40 MG; Start 07/13/16 at 18:00 Enoxaparin Sodium (Lovenox) 30 mg DAILY SC Last administered on 07/16/16 09:19 ; Admin Dose 30 MG; Start 07/13/16 at 18:00 Ondansetron HCl (Zofran Inj) 4 mg Q6H PRN IV NAUSEA AND/OR VOMITING; Start at 18:00 Morphine Sulfate (morphine) 2 mg Q4H PRN IV PAIN LEVEL 7-10; Start 07/13/16 at 18:00 Acetaminophen 650 mg 650 mg Q6H PRN PO PAIN AND OR ELEVATED TEMP; Start at 01:00 Potassium Chloride/Dextrose (D5W + KCl 20 Meq) 1,000 ml @ 50 mls/hr Q20H IV Last administered on 07/16/16 12:20; Admin Dose 50 MLS/HR; Start 07/15/16 at 18 :00 PATRICA JENKINS Jul 16, 2016 18:12
[2016-07-16] MEDS: LORATADINE 10 MG TAB PO SCH (20:23)
[2016-07-17] VITALS (13 sets, daily range): BP systolic 129–154; BP diastolic 68–95; PULSE 64–86; RESP 20
[2016-07-17] MEDS: PANTOPRAZOLE 40 MG INJ IV SCH (05:58)
[2016-07-17 08:05] LABS: ADD SCAN DIFF NO
[2016-07-17 08:07] LABS: BASOPHILS % 0.6 % (0.0-2.0); EOSINOPHILS # 0.4 10^3/ul (0.0-0.5); EOSINOPHILS % 7.4 % (0.0-7.0); HEMATOCRIT 38.3 % (37.0-47.0); HEMOGLOBIN 12.4 g/dl (12.0-16.0); LYMPHOCYTES # 1.8 10^3/ul (0.8-2.9); LYMPHOCYTES % 33.6 % (15.0-51.0); MEAN CORPUSCULAR HEMOGLOBIN 28.2 pg (29.0-33.0); MEAN CORPUSCULAR HGB CONC 32.4 g/dl (32.0-37.0); MEAN PLATELET VOLUME 10.7 fl (7.4-10.4); MONOCYTE # 0.4 10^3/ul (0.3-0.9); MONOCYTES % 8.1 % (0.0-11.0); NEUTROPHIL # 2.7 10^3/ul (1.6-7.5); NEUTROPHILS % 50.3 % (39.0-77.0); PLATELET COUNT 234 10^3/UL (140-415); RED CELL DISTRIBUTION WIDTH 13.2 % (11.5-14.5); WHITE BLOOD COUNT 5.4 10^3/ul (4.8-10.8)
[2016-07-17] MEDS: D5W + KCL 20 MEQ 1,000 ML IV SCH (08:21)
[2016-07-17] MEDS: LORATADINE 10 MG TAB PO SCH (08:21)
[2016-07-17] MEDS: ENOXAPARIN 30 MG/0.3 ML SYG SC SCH (08:22)
[2016-07-17 08:36] LABS: POTASSIUM 3.8 mmol/L (3.5-5.1)
[2016-07-17 08:39] LABS: CALCIUM 8.6 mg/dl (8.4-10.2); CREATININE 0.74 mg/dl (0.44-1.00)
--- NOTE | 2016-07-17 11:31 | CONS ---
Date/Time of Note Date/Time of Note DATE: 07/17/16 TIME: 11:30 Assessment/Plan Assessment/Plan Additional Assessment/Plan 1. Acute hypernatremia. 2. Severe hypokalemia. 3. Prerenal azotemia. 4. Abdominal pain. 5. History of hypertension. 6. History of hyperlipidemia. PLAN: electrolytes stable, K normal, Cr normal will follow up Consultation Date/Type/Reason Admit Date/Time Jul 13, 2016 at 14:11 Type of Consultation: NEPHROLOGY 24 HR Interval Summary Free Text/Dictation stable, electrolytes and Cr stable, Na better Exam/Review of Systems Vital Signs Vitals Vital Signs Date Time Temp Pulse Resp B/P Pulse Ox O2 Delivery O2 Flow Rate FiO2 07/17/16 08:11 64 07/17/16 07:47 98.1 20 154/95 99 07/14/16 12:02 Room Air Intake and Output 07/16/16 07/16/16 07/17/16 15:00 23:00 07:00 Intake Total 360 ml 1010 ml 600 ml Output Total 1000 ml Balance 360 ml 10 ml 600 ml Exam GENERAL: Awake, alert, in no distress. HEENT: Normal. Oropharynx clear. NECK: Supple, no JVD, no lymphadenopathy. LUNGS: Clear to auscultation. No crackles, no wheezes. HEART: S1, S2, with regular rhythm, no murmur. ABDOMEN: Soft, nontender, nondistended. Bowel sounds are present. EXTREMITIES: No clubbing, cyanosis, or edema. NEUROLOGICAL: Nonfocal, intact. PSYCHIATRIC: Appropriate affect and mood. Results Result Diagram: 07/17/16 0725 07/17/16 0725 Results 24 hrs Laboratory Tests Test 07/17/16 07:25 White Blood Count 5.4 Red Blood Count 4.40 Hemoglobin 12.4 Hematocrit 38.3 Mean Corpuscular Volume 87.0 Mean Corpuscular Hemoglobin 28.2 L Mean Corpuscular Hemoglobin Concent 32.4 Red Cell Distribution Width 13.2 Platelet Count 234 Mean Platelet Volume 10.7 H Neutrophils % 50.3 Lymphocytes % 33.6 Monocytes % 8.1 Eosinophils % 7.4 H Basophils % 0.6 Nucleated Red Blood Cells % 0.0 Neutrophils # 2.7 Lymphocytes # 1.8 Monocytes # 0.4 Eosinophils # 0.4 Basophils # 0.0 Nucleated Red Blood Cells # 0.0 Sodium Level 138 Potassium Level 3.8 Chloride Level 102 Carbon Dioxide Level 28 Anion Gap 12 Blood Urea Nitrogen 17 Creatinine 0.74 Glucose Level 102 Calcium Level 8.6 Medications Medications Current Medications Hydralazine HCl (Apresoline) 10 mg Q6H PRN IV SBP>170; Start 07/13/16 at 18:00 Pantoprazole (Protonix Iv) 40 mg BID@06,18 IV Last administered on 07/17/16 05 :58; Admin Dose 40 MG; Start 07/13/16 at 18:00 Enoxaparin Sodium (Lovenox) 30 mg DAILY SC Last administered on 07/17/16 08:22 ; Admin Dose 30 MG; Start 07/13/16 at 18:00 Ondansetron HCl (Zofran Inj) 4 mg Q6H PRN IV NAUSEA AND/OR VOMITING; Start at 18:00 Morphine Sulfate (morphine) 2 mg Q4H PRN IV PAIN LEVEL 7-10; Start 07/13/16 at 18:00 Acetaminophen 650 mg 650 mg Q6H PRN PO PAIN AND OR ELEVATED TEMP; Start at 01:00 Potassium Chloride/Dextrose (D5W + KCl 20 Meq) 1,000 ml @ 50 mls/hr Q20H IV Last administered on 07/17/16 08:21; Admin Dose 50 MLS/HR; Start 07/15/16 at 18 :00 Loratadine (Claritin) 10 mg DAILY PO Last administered on 07/17/16 08:21; Admin Dose 10 MG; Start 07/16/16 at 18:30 BERNICE DISLA MD Jul 17, 2016 11:31
--- NOTE | 2016-07-17 12:46 | PN ---
Date/Time of Note Date/Time of Note DATE: 07/17/16 TIME: 12:29 Assessment/Plan Lines/Catheters IV Catheter Type (from Nrsg): Peripheral IV Subjective 24 Hr Interval Summary Free Text/Dictation 1030_- NAD, talking on phone, feels better. dw staff Exam/Review of Systems Vital Signs Vitals Vital Signs Date Time Temp Pulse Resp B/P Pulse Ox O2 Delivery O2 Flow Rate FiO2 07/17/16 12:14 78 07/17/16 11:58 98.2 20 141/72 98 07/14/16 12:02 Room Air Intake and Output 07/16/16 07/16/16 07/17/16 15:00 23:00 07:00 Intake Total 360 ml 1010 ml 600 ml Output Total 1000 ml Balance 360 ml 10 ml 600 ml Exam Constitutional: alert, oriented Psych: no complaints Head: atraumatic Eyes: EOMI ENMT: nl external ears & nose Neck: non-tender Respiratory: clear to auscultation Cardiovascular: nl pulses Gastrointestinal: non-tender, soft Musculoskeletal: nl extremities to inspection Extremities: normal pulses Neurological: nl mental status Results Result Diagram: 07/17/16 0725 07/17/16 0725 Results 24 hrs Laboratory Tests Test 07/17/16 07:25 White Blood Count 5.4 Red Blood Count 4.40 Hemoglobin 12.4 Hematocrit 38.3 Mean Corpuscular Volume 87.0 Mean Corpuscular Hemoglobin 28.2 L Mean Corpuscular Hemoglobin Concent 32.4 Red Cell Distribution Width 13.2 Platelet Count 234 Mean Platelet Volume 10.7 H Neutrophils % 50.3 Lymphocytes % 33.6 Monocytes % 8.1 Eosinophils % 7.4 H Basophils % 0.6 Nucleated Red Blood Cells % 0.0 Neutrophils # 2.7 Lymphocytes # 1.8 Monocytes # 0.4 Eosinophils # 0.4 Basophils # 0.0 Nucleated Red Blood Cells # 0.0 Sodium Level 138 Potassium Level 3.8 Chloride Level 102 Carbon Dioxide Level 28 Anion Gap 12 Blood Urea Nitrogen 17 Creatinine 0.74 Glucose Level 102 Calcium Level 8.6 Medications Medications Current Medications Hydralazine HCl (Apresoline) 10 mg Q6H PRN IV SBP>170; Start 07/13/16 at 18:00 Pantoprazole (Protonix Iv) 40 mg BID@06,18 IV Last administered on 07/17/16t 05 :58; Admin Dose 40 MG; Start 07/13/16 at 18:00 Enoxaparin Sodium (Lovenox) 30 mg DAILY SC Last administered on 07/17/16 08:22 ; Admin Dose 30 MG; Start 07/13/16 at 18:00 Ondansetron HCl (Zofran Inj) 4 mg Q6H PRN IV NAUSEA AND/OR VOMITING; Start at 18:00 Morphine Sulfate (morphine) 2 mg Q4H PRN IV PAIN LEVEL 7-10; Start 07/13/16 at 18:00 Acetaminophen 650 mg 650 mg Q6H PRN PO PAIN AND OR ELEVATED TEMP; Start at 01:00 Potassium Chloride/Dextrose (D5W + KCl 20 Meq) 1,000 ml @ 50 mls/hr Q20H IV Last administered on 07/17/16 08:21; Admin Dose 50 MLS/HR; Start 07/15/16 at 18 :00 Loratadine (Claritin) 10 mg DAILY PO Last administered on 07/17/16 08:21; Admin Dose 10 MG; Start 07/16/16 at 18:30 PATRICA JENKINS Jul 17, 2016 12:45
--- NOTE | 2016-07-17 13:07 | RADRPT ---
Vent Rate: 83 bpm RR Interval: 0 msec OH Interval: 136 msec QRS Duration: 74 msec QT Interval: 360 msec QTC Interval: 423 msec P-R-T [place]: 68 - 59 - 43 degrees Normal sinus rhythm Normal ECG No previous tracing available for comparison Electronically Signed By: Neel Paula [id number]
[2016-07-17 14:33] LABS: CHOL/HDL RATIO 4.1 RATIO
--- NOTE | 2016-07-17 15:32 | RADRPT ---
Echocardiogram Report Patient Name: ALEXANDRAE LEVINE Gender: Female Date: 1950 Study Date: 17-Jul-2016 Cab Supervisor: [facility] Location: [address] Ref. Physician: PATRICA JENKINS Quality: Adequate Procedures: Transthoracic echocardiogram with complete 2D, M-Mode, and doppler examination. Indications: Chest Pain. 2D/M Mode Doppler Measurement Value Normal Ranges Measurement Value Normal Ranges LVIDd 2D 4.3 3.5 - 5.6 cm AV Peak Bhargav 1.4 m/sec LVIDs 2D 3.0 2.1 - 4.1 cm AV Peak PG 7.0 mmHg FS 2D 30.0 % AI Peak PG 86.0 mmHg LVPWd 2D 1.1 0.6 - 1.1 cm AI Peak Bhargav 4.6 m/sec IVSd 2D 1.1 0.6 - 1.1 cm AI PHT 544.0 msec IVS/LVPW 2D 1.0 LVOT Peak Bhargav 0.8 m/sec AoR Diam 2D 2.8 2.0 - 3.7 cm LVOT Peak PG 3.0 mmHg LA/Ao 2D 1 0 - 1 MV E Peak Bhargav 0.6 m/sec EDV 2D 81.7 cm3 MV A Peak Bhargav 1.0 m/sec ESV 2D 28.1 cm3 MV E/A 0.6 LA Dimen 2D 3.8 2.3 - 4.0 cm MV Decel Time 236 msec MV E/A 0.6 Findings Left Ventricle: Normal left ventricular systolic function. Normal left ventricular cavity size. Left ventricular wall thickness upper limits of normal. Ejection fraction is visually estimated at 65 %. Tissue Doppler/Mitral Doppler indices are consistent with impaired relaxation (Stage I diastolic dysfunction). Right Ventricle: Normal right ventricular size. Normal right ventricular systolic function. Left Atrium: The left atrium is normal in size. Right Atrium: The right atrium is normal in size. Mitral Valve: Mild mitral annular calcification. Trace mitral regurgitation. Aortic Valve: Trileaflet aortic valve. Mild to moderate aortic valve regurgitation. Tricuspid Valve: Tricuspid valve not well visualized. There is trace tricuspid regurgitation. Pulmonic Valve: There is trace pulmonic regurgitation. Pericardium: Normal pericardium with no significant pericardial effusion. Aorta: Normal aortic root. IVC: Normal size and normal respiratory collapse consistent with normal right atrial pressure. Conclusions Normal left ventricular systolic function. Normal left ventricular cavity size. Left ventricular wall thickness upper limits of normal. Ejection fraction is visually estimated at 65 %. Tissue Doppler/Mitral Doppler indices are consistent with impaired relaxation (Stage I diastolic dysfunction). Mild mitral annular calcification. Trace mitral regurgitation. Trileaflet aortic valve. Mild to moderate aortic valve regurgitation. Tricuspid valve not well visualized. There is trace tricuspid regurgitation. Electronically Signed By: Danni Dyer 17-Jul-2016 15:31:14 -0700 Patient Name: ALEXANDREA LEVINE Study Date: 17-Jul-2016 [id number]
--- NOTE | 2016-07-17 16:20 | CONS ---
Date/Time of Note Date/Time of Note DATE: 07/17/16 TIME: 16:14 Assessment/Plan Assessment/Plan Problems: (1) Hypernatremia Status: Acute Additional Assessment/Plan Atyicla CP likely pleuritic Echo with normal LVEF NO wall motion CXr neg NSAIDS will /fu there is no need for further cardiac work up in house. if symptoms continues we may consider stress Consultation Date/Type/Reason Admit Date/Time Jul 13, 2016 at 14:11 Date of Consultation: Jul 17, 2016 Type of Consultation: Interventional Cardiology Reason for Consultation Morgan is 66 year old F who came in with hypernatremia, now complaining of Cp which is increasing with deep breathing. Pt never had this symptoms before. likely pleuritic in nature with some reproducible component. Constitutional: no complaints Eyes: no complaints ENT: no complaints Respiratory: no complaints Cardiovascular: no complaints Gastrointestinal: no complaints Genitourinary: no complaints Musculoskeletal: no complaints Skin: no complaints Neurologic: no complaints Psychological: no complaints Social History Smoking Status: Former smoker Exam/Review of Systems Vital Signs Vitals Vital Signs Date Time Temp Pulse Resp B/P Pulse Ox O2 Delivery O2 Flow Rate FiO2 07/17/16 16:11 72 07/17/16 11:58 98.2 20 141/72 98 07/14/16 12:02 Room Air Intake and Output 07/16/16 07/16/16 07/17/16 15:00 23:00 07:00 Intake Total 360 ml 1010 ml 600 ml Output Total 1000 ml Balance 360 ml 10 ml 600 ml Exam Constitutional: alert, oriented Psych: no complaints Head: normocephalic Eyes: nl conjunctiva ENMT: nl external ears & nose Neck: supple Respiratory: clear to auscultation Cardiovascular: regular rate and rhythm Gastrointestinal: soft Musculoskeletal: nl extremities to inspection Results Result Diagram: 07/17/16 0725 07/17/16 0725 Results 24 hrs Laboratory Tests Test 07/17/16 07:25 07/17/16 13:50 White Blood Count 5.4 Red Blood Count 4.40 Hemoglobin 12.4 Hematocrit 38.3 Mean Corpuscular Volume 87.0 Mean Corpuscular Hemoglobin 28.2 L Mean Corpuscular Hemoglobin Concent 32.4 Red Cell Distribution Width 13.2 Platelet Count 234 Mean Platelet Volume 10.7 H Neutrophils % 50.3 Lymphocytes % 33.6 Monocytes % 8.1 Eosinophils % 7.4 H Basophils % 0.6 Nucleated Red Blood Cells % 0.0 Neutrophils # 2.7 Lymphocytes # 1.8 Monocytes # 0.4 Eosinophils # 0.4 Basophils # 0.0 Nucleated Red Blood Cells # 0.0 Sodium Level 138 Potassium Level 3.8 Chloride Level 102 Carbon Dioxide Level 28 Anion Gap 12 Blood Urea Nitrogen 17 Creatinine 0.74 Glucose Level 102 Calcium Level 8.6 Troponin I < 0.012 Triglycerides Level 265 H Cholesterol Level 156 LDL Cholesterol, Calculated 65 HDL Cholesterol 38 Cholesterol/HDL Ratio 4.1 Medications Medications Current Medications Hydralazine HCl (Apresoline) 10 mg Q6H PRN IV SBP>170; Start 07/13/16 at 18:00 Pantoprazole (Protonix Iv) 40 mg BID@06,18 IV Last administered on 07/17/16 05 :58; Admin Dose 40 MG; Start 07/13/16 at 18:00 Enoxaparin Sodium (Lovenox) 30 mg DAILY SC Last administered on 07/17/16 08:22 ; Admin Dose 30 MG; Start 07/13/16 at 18:00 Ondansetron HCl (Zofran Inj) 4 mg Q6H PRN IV NAUSEA AND/OR VOMITING; Start at 18:00 Morphine Sulfate (morphine) 2 mg Q4H PRN IV PAIN LEVEL 7-10; Start 07/13/16 at 18:00 Acetaminophen 650 mg 650 mg Q6H PRN PO PAIN AND OR ELEVATED TEMP; Start at 01:00 Potassium Chloride/Dextrose (D5W + KCl 20 Meq) 1,000 ml @ 50 mls/hr Q20H IV Last administered on 07/17/16 08:21; Admin Dose 50 MLS/HR; Start 07/15/16 at 18 :00 Loratadine (Claritin) 10 mg DAILY PO Last administered on 07/17/16 08:21; Admin Dose 10 MG; Start 07/16/16 at 18:30 UYEN SIMS MD Jul 17, 2016 16:20
[2016-07-17] MEDS: PANTOPRAZOLE (EC) 40 MG TAB PO SCH (17:40)
[2016-07-18] VITALS (12 sets, daily range): BP systolic 130–159; BP diastolic 71–97; PULSE 63–90; RESP 20
[2016-07-18 03:59] LABS: ADD SCAN DIFF NO
[2016-07-18 04:05] LABS: HEMATOCRIT 37.6 % (37.0-47.0); HEMOGLOBIN 12.2 g/dl (12.0-16.0); LYMPHOCYTES % 38.5 % (15.0-51.0); MEAN CORPUSCULAR HEMOGLOBIN 28.3 pg (29.0-33.0); MEAN CORPUSCULAR HGB CONC 32.4 g/dl (32.0-37.0); MEAN CORPUSCULAR VOLUME 87.2 fl (82.0-101.0); MEAN PLATELET VOLUME 10.6 fl (7.4-10.4); NEUTROPHILS % 43.1 % (39.0-77.0); PLATELET COUNT 230 10^3/UL (140-415); RED BLOOD COUNT 4.31 10^6/ul (4.20-5.40); WHITE BLOOD COUNT 5.1 10^3/ul (4.8-10.8)
[2016-07-18 04:06] LABS: BASOPHILS % 0.8 % (0.0-2.0); EOSINOPHILS # 0.4 10^3/ul (0.0-0.5); EOSINOPHILS % 7.6 % (0.0-7.0); MONOCYTE # 0.5 10^3/ul (0.3-0.9); MONOCYTES % 9.8 % (0.0-11.0); NEUTROPHIL # 2.2 10^3/ul (1.6-7.5)
[2016-07-18 05:07] LABS: POTASSIUM 4.1 mmol/L (3.5-5.1)
[2016-07-18 05:10] LABS: CREATININE 0.83 mg/dl (0.44-1.00)
[2016-07-18 05:11] LABS: CALCIUM 8.6 mg/dl (8.4-10.2)
[2016-07-18] MEDS: D5W + KCL 20 MEQ 1,000 ML IV SCH ×2 (05:16→22:31)
[2016-07-18] MEDS: PANTOPRAZOLE (EC) 40 MG TAB PO SCH ×2 (05:16→17:19)
[2016-07-18] MEDS: LORATADINE 10 MG TAB PO SCH (08:21)
[2016-07-18] MEDS: ENOXAPARIN 30 MG/0.3 ML SYG SC SCH (08:22)
--- NOTE | 2016-07-18 10:39 | CONS ---
Date/Time of Note Date/Time of Note DATE: 07/18/16 TIME: 10:37 Assessment/Plan Assessment/Plan Additional Assessment/Plan 1. Acute hypernatremia. 2. Severe hypokalemia. 3. Prerenal azotemia. 4. Abdominal pain. 5. History of hypertension. 6. History of hyperlipidemia. PLAN: electrolytes stable, K normal, Cr normal c/o chest pain yesterday, ECHO showed EF 65%,s tage I DD, Troponin x 3 negative will follow up Consultation Date/Type/Reason Admit Date/Time Jul 13, 2016 at 14:11 Type of Consultation: NEPHROLOGY 24 HR Interval Summary Free Text/Dictation pt c/o chest pain yesterday , troponin x 3 negative, BP stable Exam/Review of Systems Vital Signs Vitals Vital Signs Date Time Temp Pulse Resp B/P Pulse Ox O2 Delivery O2 Flow Rate FiO2 07/18/16 08:22 63 07/18/16 07:36 98.2 20 136/71 98 07/18/16 04:00 Room Air Intake and Output 07/17/16 07/17/16 07/18/16 15:00 23:00 07:00 Intake Total 1250 ml 670 ml Balance 1250 ml 670 ml Exam GENERAL: Awake, alert, in no distress. HEENT: Normal. Oropharynx clear. NECK: Supple, no JVD, no lymphadenopathy. LUNGS: Clear to auscultation. No crackles, no wheezes. HEART: S1, S2, with regular rhythm, no murmur. ABDOMEN: Soft, nontender, nondistended. Bowel sounds are present. EXTREMITIES: No clubbing, cyanosis, or edema. NEUROLOGICAL: Nonfocal, intact. PSYCHIATRIC: Appropriate affect and mood. Results Result Diagram: 07/18/16 0350 07/18/16 0350 Results 24 hrs Laboratory Tests Test 07/17/16 13:50 07/17/16 19:44 07/18/16 03:50 Troponin I < 0.012 < 0.012 < 0.012 Triglycerides Level 265 H Cholesterol Level 156 LDL Cholesterol, Calculated 65 HDL Cholesterol 38 Cholesterol/HDL Ratio 4.1 White Blood Count 5.1 Red Blood Count 4.31 Hemoglobin 12.2 Hematocrit 37.6 Mean Corpuscular Volume 87.2 Mean Corpuscular Hemoglobin 28.3 L Mean Corpuscular Hemoglobin Concent 32.4 Red Cell Distribution Width 13.0 Platelet Count 230 Mean Platelet Volume 10.6 H Neutrophils % 43.1 Lymphocytes % 38.5 Monocytes % 9.8 Eosinophils % 7.6 H Basophils % 0.8 Nucleated Red Blood Cells % 0.0 Neutrophils # 2.2 Lymphocytes # 2.0 Monocytes # 0.5 Eosinophils # 0.4 Basophils # 0.0 Nucleated Red Blood Cells # 0.0 Sodium Level 138 Potassium Level 4.1 Chloride Level 104 Carbon Dioxide Level 28 Anion Gap 10 Blood Urea Nitrogen 17 Creatinine 0.83 Glucose Level 102 Calcium Level 8.6 Medications Medications Current Medications Hydralazine HCl (Apresoline) 10 mg Q6H PRN IV SBP>170; Start 07/13/16 at 18:00 Enoxaparin Sodium (Lovenox) 30 mg DAILY SC Last administered on 07/18/16 08:22 ; Admin Dose 30 MG; Start 07/13/16 at 18:00 Ondansetron HCl (Zofran Inj) 4 mg Q6H PRN IV NAUSEA AND/OR VOMITING; Start at 18:00 Morphine Sulfate (morphine) 2 mg Q4H PRN IV PAIN LEVEL 7-10; Start 07/13/16 at 18:00 Acetaminophen 650 mg 650 mg Q6H PRN PO PAIN AND OR ELEVATED TEMP; Start at 01:00 Potassium Chloride/Dextrose (D5W + KCl 20 Meq) 1,000 ml @ 50 mls/hr Q20H IV Last administered on 07/18/16 05:16; Admin Dose 50 MLS/HR; Start 07/15/16 at 18 :00 Loratadine (Claritin) 10 mg DAILY PO Last administered on 07/18/16 08:21; Admin Dose 10 MG; Start 07/16/16 at 18:30 Pantoprazole (Protonix Tab) 40 mg BID@06,18 PO Last administered on 07/18/16 05:16; Admin Dose 40 MG; Start 07/17/16 at 18:00 BERNICE DISLA MD Jul 18, 2016 10:39
--- NOTE | 2016-07-18 19:37 | PN ---
Date/Time of Note Date/Time of Note DATE: 07/18/16 TIME: 19:36 Assessment/Plan VTE Prophylaxis VTE Prophylaxis Intervention: SCD's Lines/Catheters IV [facility] (from [facility] Peripheral IV Assessment/Plan Chief Complaint/Hosp Course ASSESSMENT AND PLAN: 1. Hypernatremia, resolving. 2. Hypokalemia, resolved. 3. Abdominal pain. 4. Hypertension. Continue hydralazine p.r.n. for systolic blood pressure above 170. 5. Hyperlipidemia. 6. Acute coronary syndrome ruled out. Start PT. Further recommendations based on clinical course. Plan of care is discussed with Dr. Little. Problems: Subjective 24 Hr Interval Summary Free Text/Dictation Patient denies any chest pain, denies shortness of breath, tolerates current diet well. Exam/Review of Systems Vital Signs Vitals Vital Signs Date Time Temp Pulse Resp B/P Pulse Ox O2 Delivery O2 Flow Rate FiO2 07/18/16 16:08 78 07/18/16 15:54 98.8 20 136/76 96 07/18/16 04:00 Room Air Intake and Output 07/17/16 07/17/16 07/18/16 15:00 23:00 07:00 Intake Total 1250 ml 670 ml Balance 1250 ml 670 ml Exam PHYSICAL ASSESSMENT GENERAL: Well-developed, well-nourished female currently is awake, alert. HEENT: Head is atraumatic, normocephalic. Pupils equal, round, reactive to light and accommodation. Oral mucosa is dry. NECK: Supple, no cervical lymphadenopathy, no thyromegaly. CHEST: Lungs clear bilaterally. There is no rhonchi, wheezes, or rales noted. CARDIOVASCULAR: Normal S1, S2. No murmurs, gallops, clicks, rubs noted. ABDOMEN: Round, soft, nondistended. Patient has left upper quadrant tenderness on palpation. There is no guarding, no rebound tenderness. EXTREMITIES: There is no edema, clubbing, cyanosis. Pulses equal bilaterally 2 +. SKIN: There is no rash, petechiae noted. NEUROLOGIC: Patient is awake, alert and oriented x4. Results Result Diagram: 07/18/16 0350 07/18/16 0350 Results 24 hrs Laboratory Tests Test 07/17/16 19:44 07/18/16 03:50 Troponin I < 0.012 < 0.012 White Blood Count 5.1 Red Blood Count 4.31 Hemoglobin 12.2 Hematocrit 37.6 Mean Corpuscular Volume 87.2 Mean Corpuscular Hemoglobin 28.3 L Mean Corpuscular Hemoglobin Concent 32.4 Red Cell Distribution Width 13.0 Platelet Count 230 Mean Platelet Volume 10.6 H Neutrophils % 43.1 Lymphocytes % 38.5 Monocytes % 9.8 Eosinophils % 7.6 H Basophils % 0.8 Nucleated Red Blood Cells % 0.0 Neutrophils # 2.2 Lymphocytes # 2.0 Monocytes # 0.5 Eosinophils # 0.4 Basophils # 0.0 Nucleated Red Blood Cells # 0.0 Sodium Level 138 Potassium Level 4.1 Chloride Level 104 Carbon Dioxide Level 28 Anion Gap 10 Blood Urea Nitrogen 17 Creatinine 0.83 Glucose Level 102 Calcium Level 8.6 Medications Medications Current Medications Hydralazine HCl (Apresoline) 10 mg Q6H PRN IV SBP>170; Start 07/13/16 at 18:00 Enoxaparin Sodium (Lovenox) 30 mg DAILY SC Last administered on 07/18/16 08:22 ; Admin Dose 30 MG; Start 07/13/16 at 18:00 Ondansetron HCl (Zofran Inj) 4 mg Q6H PRN IV NAUSEA AND/OR VOMITING; Start at 18:00 Morphine Sulfate (morphine) 2 mg Q4H PRN IV PAIN LEVEL 7-10; Start 07/13/16 at 18:00 Acetaminophen 650 mg 650 mg Q6H PRN PO PAIN AND OR ELEVATED TEMP; Start at 01:00 Potassium Chloride/Dextrose (D5W + KCl 20 Meq) 1,000 ml @ 50 mls/hr Q20H IV Last administered on 07/18/16 05:16; Admin Dose 50 MLS/HR; Start 07/15/16 at 18 :00 Loratadine (Claritin) 10 mg DAILY PO Last administered on 07/18/16 08:21; Admin Dose 10 MG; Start 07/16/16 at 18:30 Pantoprazole (Protonix Tab) 40 mg BID@06,18 PO Last administered on 07/18/16 17:19; Admin Dose 40 MG; Start 07/17/16 at 18:00 KRAIG BAÑUELOS Jul 18, 2016 19:37
[2016-07-19] VITALS (12 sets, daily range): BP systolic 129–157; BP diastolic 70–83; PULSE 64–84; RESP 18–20
[2016-07-19] MEDS: PANTOPRAZOLE (EC) 40 MG TAB PO SCH ×2 (06:38→17:23)
[2016-07-19 08:22] LABS: ADD SCAN DIFF NO
[2016-07-19 08:31] LABS: BASOPHIL # 0.1 10^3/ul (0.0-0.1); BASOPHILS % 0.8 % (0.0-2.0); EOSINOPHILS # 0.5 10^3/ul (0.0-0.5); EOSINOPHILS % 7.5 % (0.0-7.0); HEMATOCRIT 38.9 % (37.0-47.0); HEMOGLOBIN 12.8 g/dl (12.0-16.0); LYMPHOCYTES # 2.3 10^3/ul (0.8-2.9); LYMPHOCYTES % 35.5 % (15.0-51.0); MEAN CORPUSCULAR HEMOGLOBIN 28.7 pg (29.0-33.0); MEAN CORPUSCULAR HGB CONC 32.9 g/dl (32.0-37.0); MEAN CORPUSCULAR VOLUME 87.2 fl (82.0-101.0); MEAN PLATELET VOLUME 11.1 fl (7.4-10.4); MONOCYTE # 0.6 10^3/ul (0.3-0.9); MONOCYTES % 9.5 % (0.0-11.0); NEUTROPHILS % 46.5 % (39.0-77.0); PLATELET COUNT 244 10^3/UL (140-415); RED BLOOD COUNT 4.46 10^6/ul (4.20-5.40); WHITE BLOOD COUNT 6.4 10^3/ul (4.8-10.8)
[2016-07-19] MEDS: LORATADINE 10 MG TAB PO SCH (08:53)
[2016-07-19] MEDS: ENOXAPARIN 30 MG/0.3 ML SYG SC SCH (08:54)
[2016-07-19 09:00] LABS: POTASSIUM 3.9 mmol/L (3.5-5.1)
[2016-07-19 09:02] LABS: CREATININE 0.76 mg/dl (0.44-1.00)
[2016-07-19 09:03] LABS: CALCIUM 8.8 mg/dl (8.4-10.2)
--- NOTE | 2016-07-19 10:31 | CONS ---
Date/Time of Note Date/Time of Note DATE: 07/19/16 TIME: 10:30 Assessment/Plan Assessment/Plan Additional Assessment/Plan 1. Acute hypernatremia. improved 2. Severe hypokalemia.- now stable 3. Prerenal azotemia.- Improved 4. Chest pain atypical 5. History of hypertension. 6. History of hyperlipidemia. PLAN: electrolytes stable, K normal, Cr normal c/o chest pain yesterday, ECHO showed EF 65%,s tage I DD, Troponin x 3 negative will follow up Consultation Date/Type/Reason Admit Date/Time Jul 13, 2016 at 14:11 Type of Consultation: NEPHROLOGY Reason for Consultation Hypernatremia Referring Provider: ZACHARY DANIELS MD 24 HR Interval Summary Free Text/Dictation remained stable,afebrile, Exam/Review of Systems Vital Signs Vitals Vital Signs Date Time Temp Pulse Resp B/P Pulse Ox O2 Delivery O2 Flow Rate FiO2 07/19/16 08:44 64 07/19/16 08:08 97.9 18 156/83 99 07/18/16 04:00 Room Air Intake and Output 07/18/16 07/18/16 07/19/16 15:00 23:00 07:00 Intake Total 1320 ml 1300 ml Balance 1320 ml 1300 ml Results Result Diagram: 07/19/16 0729 07/19/16 0729 Results 24 hrs Laboratory Tests Test 07/19/16 07:29 White Blood Count 6.4 # Red Blood Count 4.46 Hemoglobin 12.8 Hematocrit 38.9 Mean Corpuscular Volume 87.2 Mean Corpuscular Hemoglobin 28.7 L Mean Corpuscular Hemoglobin Concent 32.9 Red Cell Distribution Width 13.0 Platelet Count 244 Mean Platelet Volume 11.1 H Neutrophils % 46.5 Lymphocytes % 35.5 Monocytes % 9.5 Eosinophils % 7.5 H Basophils % 0.8 Nucleated Red Blood Cells % 0.0 Neutrophils # 3.0 Lymphocytes # 2.3 Monocytes # 0.6 Eosinophils # 0.5 Basophils # 0.1 Nucleated Red Blood Cells # 0.0 Sodium Level 138 Potassium Level 3.9 Chloride Level 102 Carbon Dioxide Level 30 Anion Gap 10 Blood Urea Nitrogen 20 Creatinine 0.76 Glucose Level 95 Calcium Level 8.8 Medications Medications Current Medications Hydralazine HCl (Apresoline) 10 mg Q6H PRN IV SBP>170; Start 3/22/17 at 18:00 Enoxaparin Sodium (Lovenox) 30 mg DAILY SC Last administered on 07/19/16 08:54 ; Admin Dose 30 MG; Start 07/13/16 at 18:00 Ondansetron HCl (Zofran Inj) 4 mg Q6H PRN IV NAUSEA AND/OR VOMITING; Start at 18:00 Morphine Sulfate (morphine) 2 mg Q4H PRN IV PAIN LEVEL 7-10; Start 07/13/16 at 18:00 Acetaminophen 650 mg 650 mg Q6H PRN PO PAIN AND OR ELEVATED TEMP; Start at 01:00 Potassium Chloride/Dextrose (D5W + KCl 20 Meq) 1,000 ml @ 50 mls/hr Q20H IV Last administered on 07/18/16 22:31; Admin Dose 50 MLS/HR; Start 07/15/16 at 18 :00 Loratadine (Claritin) 10 mg DAILY PO Last administered on 07/19/16 08:53; Admin Dose 10 MG; Start 07/16/16 at 18:30 Pantoprazole (Protonix Tab) 40 mg BID@06,18 PO Last administered on 07/19/16 06:38; Admin Dose 40 MG; Start 07/17/16 at 18:00 BERNICE DISLA MD Jul 19, 2016 10:31
--- NOTE | 2016-07-19 16:24 | PN ---
Date/Time of Note Date/Time of Note DATE: 07/19/16 TIME: 16:22 Assessment/Plan VTE Prophylaxis VTE Prophylaxis Intervention: SCD's Lines/Catheters IV C[facility]ter Type (from [facility]): Peripheral IV Assessment/Plan Chief Complaint/Hosp Course ASSESSMENT AND PLAN: 1. Hypernatremia, resolving. 2. Hypokalemia, resolved. 3. Abdominal pain. 4. Hypertension. Continue hydralazine p.r.n. for systolic blood pressure above 170. 5. Hyperlipidemia. 6. Acute coronary syndrome ruled out. PT eval. Further recommendations based on clinical course. Plan of care is discussed with Dr. Little. Problems: Subjective 24 Hr Interval Summary Free Text/Dictation Patient denies chest pain, remains afebrile, PT eval. Exam/Review of Systems Vital Signs Vitals Vital Signs Date Time Temp Pulse Resp B/P Pulse Ox O2 Delivery O2 Flow Rate FiO2 07/19/16 12:27 74 07/19/16 11:49 98.6 18 157/76 94 07/18/16 04:00 Room Air Intake and Output 07/18/16 07/18/16 07/19/16 15:00 23:00 07:00 Intake Total 1320 ml 1300 ml Balance 1320 ml 1300 ml Exam PHYSICAL ASSESSMENT GENERAL: Well-developed, well-nourished female currently is awake, alert. HEENT: Head is atraumatic, normocephalic. Pupils equal, round, reactive to light and accommodation. Oral mucosa is dry. NECK: Supple, no cervical lymphadenopathy, no thyromegaly. CHEST: Lungs clear bilaterally. There is no rhonchi, wheezes, or rales noted. CARDIOVASCULAR: Normal S1, S2. No murmurs, gallops, clicks, rubs noted. ABDOMEN: Round, soft, nondistended. Patient has left upper quadrant tenderness on palpation. There is no guarding, no rebound tenderness. EXTREMITIES: There is no edema, clubbing, cyanosis. Pulses equal bilaterally 2 +. SKIN: There is no rash, petechiae noted. NEUROLOGIC: Patient is awake, alert and oriented x4. Results Result Diagram: 07/19/16 0729 07/19/16 0729 Results 24 hrs Laboratory Tests Test 07/19/16 07:29 White Blood Count 6.4 # Red Blood Count 4.46 Hemoglobin 12.8 Hematocrit 38.9 Mean Corpuscular Volume 87.2 Mean Corpuscular Hemoglobin 28.7 L Mean Corpuscular Hemoglobin Concent 32.9 Red Cell Distribution Width 13.0 Platelet Count 244 Mean Platelet Volume 11.1 H Neutrophils % 46.5 Lymphocytes % 35.5 Monocytes % 9.5 Eosinophils % 7.5 H Basophils % 0.8 Nucleated Red Blood Cells % 0.0 Neutrophils # 3.0 Lymphocytes # 2.3 Monocytes # 0.6 Eosinophils # 0.5 Basophils # 0.1 Nucleated Red Blood Cells # 0.0 Sodium Level 138 Potassium Level 3.9 Chloride Level 102 Carbon Dioxide Level 30 Anion Gap 10 Blood Urea Nitrogen 20 Creatinine 0.76 Glucose Level 95 Calcium Level 8.8 Medications Medications Current Medications Hydralazine HCl (Apresoline) 10 mg Q6H PRN IV SBP>170; Start 07/13/16 at 18:00 Enoxaparin Sodium (Lovenox) 30 mg DAILY SC Last administered on 07/19/16 08:54 ; Admin Dose 30 MG; Start 07/13/16 at 18:00 Ondansetron HCl (Zofran Inj) 4 mg Q6H PRN IV NAUSEA AND/OR VOMITING; Start at 18:00 Morphine Sulfate (morphine) 2 mg Q4H PRN IV PAIN LEVEL 7-10; Start 07/13/16 at 18:00 Acetaminophen (Tylenol Tab) 650 mg Q6H PRN PO PAIN AND OR ELEVATED TEMP; Start 07/14/16 at 01:00 Loratadine (Claritin) 10 mg DAILY PO Last administered on 07/19/16 08:53; Admin Dose 10 MG; Start 07/16/16 at 18:30 Pantoprazole (Protonix Tab) 40 mg BID@,18 PO Last administered on 07/19/16 06:38; Admin Dose 40 MG; Start 07/17/16 at 18:00 KRAIG BAÑUELOS Jul 19, 2016 16:23
[2016-07-20] VITALS (10 sets, daily range): BP systolic 121–155; BP diastolic 73–79; PULSE 66–78; RESP 20
[2016-07-20] MEDS: PANTOPRAZOLE (EC) 40 MG TAB PO SCH ×2 (05:50→17:44)
[2016-07-20 08:19] LABS: ADD SCAN DIFF NO
[2016-07-20 08:28] LABS: BASOPHIL # 0.1 10^3/ul (0.0-0.1); BASOPHILS % 0.7 % (0.0-2.0); EOSINOPHILS # 0.4 10^3/ul (0.0-0.5); EOSINOPHILS % 6.4 % (0.0-7.0); HEMATOCRIT 40.7 % (37.0-47.0); HEMOGLOBIN 12.9 g/dl (12.0-16.0); LYMPHOCYTES # 2.2 10^3/ul (0.8-2.9); LYMPHOCYTES % 32.6 % (15.0-51.0); MEAN CORPUSCULAR HEMOGLOBIN 28.1 pg (29.0-33.0); MEAN CORPUSCULAR HGB CONC 31.7 g/dl (32.0-37.0); MEAN CORPUSCULAR VOLUME 88.7 fl (82.0-101.0); MEAN PLATELET VOLUME 11.1 fl (7.4-10.4); MONOCYTE # 0.5 10^3/ul (0.3-0.9); MONOCYTES % 7.7 % (0.0-11.0); NEUTROPHIL # 3.5 10^3/ul (1.6-7.5); NEUTROPHILS % 52.3 % (39.0-77.0); PLATELET COUNT 265 10^3/UL (140-415); RED BLOOD COUNT 4.59 10^6/ul (4.20-5.40); RED CELL DISTRIBUTION WIDTH 13.3 % (11.5-14.5); WHITE BLOOD COUNT 6.8 10^3/ul (4.8-10.8)
[2016-07-20] MEDS: LORATADINE 10 MG TAB PO SCH (08:37)
[2016-07-20] MEDS: ENOXAPARIN 30 MG/0.3 ML SYG SC SCH (08:38)
[2016-07-20 08:40] LABS: POTASSIUM 4.2 mmol/L (3.5-5.1)
[2016-07-20 08:43] LABS: CREATININE 0.81 mg/dl (0.44-1.00)
[2016-07-20 08:44] LABS: CALCIUM 8.8 mg/dl (8.4-10.2)
--- NOTE | 2016-07-20 12:58 | CONS ---
Date/Time of Note Date/Time of Note DATE: 07/20/16 TIME: 12:57 Assessment/Plan Assessment/Plan Additional Assessment/Plan 1. Acute hypernatremia. improved 2. Severe hypokalemia.- now stable 3. Prerenal azotemia.- Improved 4. Chest pain atypical 5. History of hypertension. 6. History of hyperlipidemia. PLAN: electrolytes stable, K normal, Cr normal c/o chest pain yesterday, ECHO showed EF 65%,s tage I DD, Troponin x 3 negative will follow up Consultation Date/Type/Reason Admit Date/Time Jul 13, 2016 at 14:11 Type of Consultation: NEPHROLOGY Referring Provider: ZACHARY DANIELS MD 24 HR Interval Summary Free Text/Dictation no acute events, BP stable Exam/Review of Systems Vital Signs Vitals Vital Signs Date Time Temp Pulse Resp B/P Pulse Ox O2 Delivery O2 Flow Rate FiO2 07/20/16 12:10 74 07/20/16 11:41 98.0 20 141/79 97 07/18/16 04:00 Room Air Intake and Output 07/19/16 07/19/16 07/20/16 15:00 23:00 07:00 Intake Total 840 ml 300 ml Balance 840 ml 300 ml Exam GENERAL: Awake, alert, in no distress. HEENT: Normal. Oropharynx clear. NECK: Supple, no JVD, no lymphadenopathy. LUNGS: Clear to auscultation. No crackles, no wheezes. HEART: S1, S2, with regular rhythm, no murmur. ABDOMEN: Soft, nontender, nondistended. Bowel sounds are present. EXTREMITIES: No clubbing, cyanosis, or edema. NEUROLOGICAL: Nonfocal, intact. PSYCHIATRIC: Appropriate affect and mood. Results Result Diagram: 07/20/16 0708 07/20/16 0708 Results 24 hrs Laboratory Tests Test 07/20/16 07:08 White Blood Count 6.8 Red Blood Count 4.59 Hemoglobin 12.9 Hematocrit 40.7 Mean Corpuscular Volume 88.7 Mean Corpuscular Hemoglobin 28.1 L Mean Corpuscular Hemoglobin Concent 31.7 L Red Cell Distribution Width 13.3 Platelet Count 265 Mean Platelet Volume 11.1 H Neutrophils % 52.3 Lymphocytes % 32.6 Monocytes % 7.7 Eosinophils % 6.4 Basophils % 0.7 Nucleated Red Blood Cells % 0.0 Neutrophils # 3.5 Lymphocytes # 2.2 Monocytes # 0.5 Eosinophils # 0.4 Basophils # 0.1 Nucleated Red Blood Cells # 0.0 Sodium Level 141 Potassium Level 4.2 Chloride Level 101 Carbon Dioxide Level 33 H Anion Gap 11 Blood Urea Nitrogen 23 H Creatinine 0.81 Glucose Level 93 Calcium Level 8.8 Medications Medications Current Medications Hydralazine HCl (Apresoline) 10 mg Q6H PRN IV SBP>170; Start 07/13/16 at 18:00 Enoxaparin Sodium (Lovenox) 30 mg DAILY SC Last administered on 07/20/16 08:38 ; Admin Dose 30 MG; Start 07/13/16 at 18:00 Ondansetron HCl (Zofran Inj) 4 mg Q6H PRN IV NAUSEA AND/OR VOMITING; Start at 18:00 Morphine Sulfate (morphine) 2 mg Q4H PRN IV PAIN LEVEL 7-10; Start 07/13/16 at 18:00 Acetaminophen (Tylenol Tab) 650 mg Q6H PRN PO PAIN AND OR ELEVATED TEMP; Start 07/14/16 at 01:00 Loratadine (Claritin) 10 mg DAILY PO Last administered on 07/20/16 08:37; Admin Dose 10 MG; Start 07/16/16 at 18:30 Pantoprazole (Protonix Tab) 40 mg BID@06,18 PO Last administered on 07/20/16 05:50; Admin Dose 40 MG; Start 07/17/16 at 18:00 BERNICE DISLA MD Jul 20, 2016 12:58
--- NOTE | 2016-07-24 20:12 | DS ---
DATE OF ADMISSION: 07/13/2016 DATE OF DISCHARGE: 07/20/2016 FINAL DIAGNOSES: 1. Hypernatremia, resolved. 2. Hypokalemia, resolved. 3. Abdominal pain, resolved. 4. Hypertension. 5. Hyperlipidemia. 6. Acute coronary syndrome ruled out. 7. Stage I diastolic dysfunction congestive heart failure with preserved ejection fraction of 65%. BRIEF HISTORY: The patient is a 66-year-old female who was preparing for colonoscopy and eb azar took a couple of doses of milk of magnesia and had episodes of loose stools and also episodes of nonbilious, nonbloody emesis. The patient complained of generalized weakness and left upper abd ominal pain. The patient presented to the emergency room with the following complaints. The patien t's sodium was noted to be elevated to 169 and potassium was 3.3 and the patient was admitted for rther evaluation and management. HOSPITAL COURSE: The patient was evaluated by Dr. Otto Horta in nephrology consultation. The katelynn tucker was given IV fluids and potassium supplements. The patient also complained of some chest disc omfort; however, the patient's troponin was found to be negative. The patient's lipid panel was daisy cked and, although the patient had elevated triglycerides of 265, LDL was 65. The patient responded to IV fluids well and electrolytes were closely monitored and well controlled. The patient also un derwent a 2D echo, which revealed a stage I diastolic dysfunction with ejection fraction of 65%. Th e patient was tolerating current diet well. Denied any chest pain, denied any abdominal pain, denie d any nausea or vomiting. The patient's condition overall improved. Electrolytes were stable and eb azar was discharged home. CONDITION ON DISCHARGE: Hemodynamically stable. ACTIVITY: As patient tolerates. DIET: Age 2 gram sodium, low fat, low cholesterol diet. MEDICATIONS ON DISCHARGE: The patient to continue on home medication of: 1. Aspirin 2. Lisinopril. 3. Lovastatin. 4. Multivitamins. 5. Fish oil. DISCHARGE INSTRUCTIONS: The patient is instructed to follow up with his primary care physician in 1 to 2 weeks and BMP in 1 to 2 weeks. Interdisciplinary plan was established for this patient. Plan of care was discussed with Dr. Emilio perez. Dictated By: KRAIG BAÑUELOS [employer] for ZACHARY DANIELS MD SR/NTS Conf#: [id number] DID#: [id number]
== END 2016-07-20 17:45 | disposition home or self-care (01) | DRG 641 ==
LOC: E/R 09:14 → MS4 14:11
PROVIDERS: ADMIT Internal Medicine; ATTEND Internal Medicine
DX: E87.0 Hyperosmolality and hypernatremia (principal); I11.0 Hypertensive heart disease with heart failure; I50.30 Unspecified diastolic (congestive) heart failure; E87.6 Hypokalemia; E78.5 Hyperlipidemia, unspecified; R79.89 Other specified abnormal findings of blood chemistry; R10.12 Left upper quadrant pain
CPT/HCPCS: 36415; 80048; 80053; 80061; 84484; 85025; 85610; 85730; 93005; 93306; 96372; 96374; 96375; 97162; C9113; J1650; J2060; J2405; J3480; J7030

== ENCOUNTER 2018-11-05 07:45 | Day surgery (SDC) | payer OTHER ==
[~2018-11-05] VITALS: Ht 154.9 cm; Wt 46.7 kg
[~2018-11-05 07:45] MED LIST: ASPI81TA52 PO; LISI-471 PO; LOVA10TA63 PO; OMEG-135 PO; [UNRECOGNIZED DRUG - CODE] PO
[2018-11-05] MEDS ORDERED: LOSARTAN (09:18)
[2018-11-05] MEDS ORDERED: DOCUSATE (09:18)
--- NOTE | 2018-11-05 09:23 | PREAC ---
Date/Time of Note Date/Time of Note DATE: 11/05/18 TIME: : Anesthesia Eval and Record Evaluation Time Pre-Procedure Interview DATE: 11/05/18 TIME: :22 Age 68 Sex female NPO: 8 hrs Preoperative diagnosis SCREENING Planned procedure COLONOSCOPY Past Medical History Past Medical History: Includes Cardio: HTN, Dyslipidemia Surgery & Anesthesia Issues No known issue Meds Anticoagulation: No Beta Shawn within 24 hr: No Reason Beta Shawn not given: Pt. not on B-Shawn Reported Medications [Docusate] No Conflict Check 11/05/18 [Losartan] No Conflict Check 11/05/18 Lovastatin* (Lovastatin*) 10 Mg Tablet, 10 MG PO HS, TAB 07/13/16 Discontinued Reported Medications Rhodhiss-3 Fatty Acids/Fish Oil (Fish Oil 1,000 mg Capsule) 1 Each Capsule, 1 EACH PO, CAP 07/13/16 Multivitamin/Iron/Folic Acid (MULTI COMPLETE-IRON TABLET) 1 Each Tablet, 1 EACH PO DAILY, TAB 07/13/16 Lisinopril* (Lisinopril*) 20 Mg Tablet, 20 MG PO DAILY, #30 TAB 07/13/16 Aspirin (Low Dose Aspirin) 81 Mg Tablet.dr, 81 MG PO DAILY, #30 TAB 07/13/16 Meds reviewed: Yes Allergies Coded Allergies: No Known Allergy (Unverified , 07/13/16) Allergies Reviewed: Yes Labs/Studies Labs Reviewed: Reviewed by anesthesiologist test: N/A Pre-procedure Exam Airway: Adequate mouth opening, Adequate thyromental dist Mallampati: Mallampati II Teeth: Normal Lung: Normal Heart: Normal ASA Physical Status ASA physical status: 2 Emergency: None Planned Anesthetic General/MAC: MAC Planned Pain Management Parenteral pain med Pre-operative Attestations Prior to commencing anesthesia and surgery, the patient was re-evaluated, there was verification of: *The patient's identity *The results of appropriate recent lab work and preoperative vital signs *The above evaluation not changing prior to induction *Anesthetic plan, risk benefits, alternative and complications discussed with patient/family; questions answered; patient/family understands, accepts and wishes to proceed. August Hurd M.D. Nov 05, 2018 09:23
[2018-11-05 09:24] VITALS: Ht 154.9 cm; Wt 46.7 kg
[2018-11-05] MEDS ORDERED: PROPOFOL 200 MG INJ ONE (09:25)
[2018-11-05] MEDS ORDERED: LIDOCAINE 2% (SDV) 5 ML INJ ONE (09:25)
[2018-11-05 09:29] VITALS: BP 177/98; PULSE 102; RESP 16
--- NOTE | 2018-11-05 09:47 | PAC ---
Date/Time of Note Date/Time of Note DATE: 11/05/18 TIME: 09:46 Post-Anesthesia Notes Post-Anesthesia Note Last documented vital signs HR 68 RR 14 T 98.3 BP 144/76 Activity: WNL Respiratory function: WNL Cardiovascular function: WNL Mental status: Baseline Pain reasonably controlled: Yes Hydration appropriate: Yes Nausea/Vomiting absent: Yes August Hurd M.D. Nov 05, 2018 09:47
[2018-11-05 10:24] VITALS: BP 150/91; RESP 20
== END 2018-11-05 11:44 | disposition home or self-care (01) ==
LOC: GIL 07:45
PROVIDERS: ATTEND Internal Medicine Gastroenterology
DX: Z12.11 Encounter for screening for malignant neoplasm of colon (principal); K64.9 Unspecified hemorrhoids; E78.5 Hyperlipidemia, unspecified; I10 Essential (primary) hypertension